=== PATIENT | female | born 1985 | race Caucasian/White ===

== ENCOUNTER 2016-09-28 14:32 | Emergency (ER) | payer MEDICAID ==
[2016-09-28 14:37] VITALS: RESP 16; O2SAT 97
--- NOTE | 2016-09-28 15:55 | EDPHY ---
H & P Time Seen by Provider: 09/28/16 14:59 HPI/ROS: CHIEF COMPLAINT: Fall, left knee and ankle injury HISTORY OF PRESENT ILLNESS: 30-year-old female presents to the emergency department by private vehicle after she fell down some bleachers at her son's baseball game just prior to arrival. Patient states that she slipped and fell injuring her left knee and her left ankle. She hit her head although she did not lose consciousness. She has a mild frontal headache. Denies neck or back pain. Denies chest pain or difficulty breathing. Denies abdominal pain. Denies paresthesias in her upper lower extremities. She has been unable to ambulate since the incident occurred just prior to arrival. She denies pain in her hip. REVIEW OF SYSTEMS: Constitutional: No fever, no chills. Eyes: No double or blurry vision. ENT: No sore throat. Respiratory: No cough, no shortness of breath. Cardiac: No chest pain. Gastrointestinal: No abdominal pain, vomiting or diarrhea. Genitourinary: No dysuria. Musculoskeletal: No neck or back pain. Skin: No rashes. Neurological: Mild headache. Past Medical/Surgical History: Kidney stones, anxiety, hysterectomy Social History: Single and lives in [place] Smoking Status: Former smoker Physical Exam: General Appearance: Alert, no distress. No signs of trauma to her head. She is mentating normally and answering questions appropriately. Eyes: Pupils equal and round. Extraocular motions are all intact. ENT: Mouth: Mucous membranes moist. No dental injury or malocclusion. Respiratory: No wheezing, rhonchi, or rales, lungs are clear to auscultation. Cardiovascular: Regular rate and rhythm. Gastrointestinal: Abdomen is soft and nontender, no masses, no rebound or guarding, bowel sounds normal. Neurological: Alert and oriented x 3, cranial nerves II through XII grossly intact Skin: Warm and dry, no rashes. Musculoskeletal: Nontender to palpate along the cervical, thoracic or lumbar spine. Neck is supple. Extremities: Diffuse tenderness with palpation to the left anterior aspect of her knee and lateral aspect of her left ankle. Difficult to assess ligament stability given her level of pain. No effusions noted. Limited dorsiflexion secondary to pain. Limited flexion of the left knee secondary to pain. No abrasions or ecchymosis. Normal sensation to light touch. Strong dorsalis pedis pulse on the dorsal aspect of the left foot. Psychiatric: Patient is oriented X 3, there is no agitation. Constitutional: Initial Vital Signs Temperature (C) 36.8 C 09/28/16 14:34 Heart Rate 114 H 09/28/16 14:34 Respiratory Rate 16 09/28/16 14:34 Blood Pressure 109/88 H 09/28/16 14:34 O2 Sat (%) 97 09/28/16 14:34 O2 Delivery Mode Room Air Allergies/Adverse Reactions: codeine Allergy (Verified 09/28/16 14:37) diphenhydramine [From Benadryl] Allergy (Verified 09/28/16 14:37) Medical Decision Making - Diagnostics Imaging Results: Imaging Impressions Ankle X-Ray 09/28/16 15:52 Impression: No acute osseous findings. Knee X-Ray 09/28/16 15:52 Impression: No acute osseous findings. ED Course/Re-evaluation: 30-year-old female presents to the emergency department after she fell injuring her left knee and ankle. X-rays reveal no fractures. The patient was placed in a straight leg knee immobilizer and stirrup splint for her left ankle and given crutches. She was also given orthopedic referral. [place] prescription drug monitoring program was consulted the patient has had 17 different providers prescribe narcotic medication over the last 1 year. Most recently she had a prescription for #84 oxycodone 5 mg filled on 2016. I explained to the patient that we will not fill narcotic medication for her. Differential Diagnosis: Including but not limited to fracture, dislocation, contusion, sprain - Data Points Medications Given: Discontinued Medications Ondansetron HCl (Zofran Odt) 4 mg PO EDNOW ONE Stop: 09/28/16 15:58 Last Admin: 09/28/16 16:11 Dose: 4 mg Departure - Departure Disposition: Home, Routine, Self-Care Clinical Impression: Left knee sprain Qualifiers: Encounter type: initial encounter Involved ligament of knee: unspecified ligament Qualified Code(s): S83.92XA - Sprain of unspecified site of left knee, initial encounter Left ankle sprain Qualifiers: Encounter type: initial encounter Involved ligament of ankle: unspecified ligament Qualified Code(s): S93.402A - Sprain of unspecified ligament of left ankle, initial encounter Condition: Good Instructions: Ankle Sprain (ED), Knee Sprain (ED) Additional Instructions: Knee immobilizer for comfort and support. Ankle stirrup splint for comfort and support. Weightbear as tolerated, use crutches if needed. Ibuprofen 600 mg every 8 hours as needed for pain. Referrals: Marcus Mejía MD [Medical Doctor] - 2-3 days without fail (orthopedic surgeon production hand) Stand Alone Forms: Narcotic Guidelines
[2016-09-28] MEDS ORDERED: ONDANSETRON DISINTEGRATING 4 MG TAB PO ONE (15:57)
[2016-09-28 17:17] VITALS: BP 127/108; PULSE 108; TEMP 97.9
== END 2016-09-28 17:17 | disposition home or self-care (01) ==
DX: S93.402A Sprain of unspecified ligament of left ankle, initial encounter (principal); S83.92XA Sprain of unspecified site of left knee, initial encounter; Z87.891 Personal history of nicotine dependence; W01.0XXA Fall on same level from slipping, tripping and stumbling without subsequent striking against object, initial encounter
CPT/HCPCS: L1830; L4350

== ENCOUNTER 2016-10-05 14:43 | Emergency (ER) | payer MEDICAID ==
[2016-10-05 14:53] VITALS: TEMP 98.6
[2016-10-05] MEDS ORDERED: NS 1,000 ML IV ONE ×3 (16:03→18:58)
[2016-10-05] MEDS ORDERED: HYDROmorphONE/DILAUDID 1 MG/ML SYR IVP ONE ×3 (16:03→19:49)
[2016-10-05] MEDS ORDERED: ONDANSETRON 4 MG/2 ML VIAL IVP ONE (16:03)
[2016-10-05] MEDS ORDERED: KETAMINE 100 MG/10 ML SYR IVP ONE ×3 (16:04→20:31)
--- NOTE | 2016-10-05 16:06 | EDPHY ---
H & P Time Seen by Provider: 10/05/16 15:54 HPI/ROS: CHIEF COMPLAINT: Worsening pelvic pain HISTORY OF PRESENT ILLNESS: Patient had hysterectomy in April of this year on the by Dr. Guillaume Phan at [facility]. Apparently she had mesh and some surgical infection postoperatively. Currently she is not a [facility] patient. Has not seen a physician in 2 months. Has been having worsening pelvic pain for the last 10 days much worse today was originally on the left side and now radiates across to the right. Today it is associated with nausea and vomiting and is severe in nature. Associated with urinary urgency and hesitancy but no dysuria or hematuria. She describes a few vaginal blood spots but nothing active right now. REVIEW OF SYSTEMS: Eye: no change in vision ENT: no sore throat Cardiac: no chest pain or syncope Pulmonary: no cough or SOB Abdomen: No diarrhea Musculoskeletal: no back pain; knee pain last week in ED, resolved Skin: no rash Neuro: no headache Constitutional: no fever : HPI A comprehensive 10 point review of systems is otherwise negative aside from elements mentioned in the history of present illness. PAST MEDICAL HISTORY: Hysterectomy, kidney stones, anxiety and depression. Cholecystectomy and appendectomy. Social history: Currently is seeing [facility], recently moved up here from [place]. General Appearance: Alert and conversant, cooperative. Eyes: No scleral icterus. ENT, Mouth: Normal mucous membranes. Respiratory: Normal respiratory effort, breath sounds equal, lungs are clear to auscultation. Cardiovascular: Regular rate and rhythm. Gastrointestinal: Some diffuse lower abdominal tenderness but no rebound or guarding. Bowel sounds present. Neurological: Alert and oriented x3. Normally conversant. Face symmetric, normal movement and sensation in all extremities. Skin: Warm and dry, no rashes. Musculoskeletal: No peripheral edema and no joint swelling. Psychiatric: Moderately anxious. Emergency Department course/MDM: Dilaudid 0.5 and Zofran 4 mg IV. Normal saline 1 L for nausea and vomiting. Ketamine for adjunctive pain control. I-STAT then CT abdomen and pelvis. test not indicated as she has had a hysterectomy. 1746: Negative abdominal pelvis CT scan per Dr. Martell. 1800: Results discussed, still has pain. Additional 20 mg ketamine IV, Bentyl 20 p.o., Dilaudid 0.5 IV. 1854: Still has pain, much more comfortable. Toradol 15mg. 1951: Still tells me she has abdominal pain with minimal abdominal tenderness and no rebound or guarding. Plan for pelvic exam, pelvic ultrasound, offered patient admission to hospitalist service. At this point her Emergency Department visit from 1 week ago was reviewed. According to the ED report she has had 17 different providers write controlled substance prescriptions over the past year including a prescription for 84 oxycodone on September 15. I informed the patient she would not get any further opioid medications but I was still willing to admit her for treatment of her symptoms if she feels she is too much in pain to be discharged. 2014: Pelvic performed with EMT Jennifer the in the room, has some left-sided vaginal tenderness but normal internal and external exam with the speculum of the vaginal cuff. No bleeding or discharge. 2024: The patient tells me because of childcare issues she wants to be discharged. She does not want to be overnight in the hospital. She is referred to public area attendant and her primary care clinic. She is encouraged to return if she changes her mind about admission or pelvic ultrasound. Wants an additional dose of pain medication, additional 20 mg IV ketamine and 15 mg IV Toradol ordered. MAINTENANCE ELECTRICIAN referral. Smoking Status: Former smoker Constitutional: Initial Vital Signs Temperature (C) 37.0 C 10/05/16 14:49 Heart Rate 121 H 10/05/16 14:49 Respiratory Rate 18 10/05/16 14:49 Blood Pressure 105/88 H 10/05/16 14:49 O2 Sat (%) 97 10/05/16 14:49 O2 Delivery Mode Room Air O2 (L/minute) 2 Allergies/Adverse Reactions: codeine Allergy (Verified 09/28/16 14:37) diphenhydramine [From Benadryl] Allergy (Verified 09/28/16 14:37) Home Medications: Medication Instructions Recorded ALPRAZolam 10/05/16 Cymbalta 10/05/16 Medical Decision Making Differential Diagnosis: Differential considered including but not limited to ovarian torsion, ovarian cyst, bowel obstruction, intestinal perforation, diverticulitis. Consult/Admit Bed Type: [facility] 1959 - Data Points Laboratory Results: Laboratory Results 10/05/16 16:10 10/05/16 16:10 Medications Given: Discontinued Medications Dicyclomine HCl (Bentyl) 20 mg PO EDNOW ONE Stop: 10/05/16 18:06 Last Admin: 10/05/16 18:40 Dose: 20 mg Hydromorphone HCl (Dilaudid) 0.5 mg IVP EDNOW ONE Stop: 10/05/16 16:04 Last Admin: 10/05/16 16:19 Dose: 0.5 mg Hydromorphone HCl (Dilaudid) 0.5 mg IVP EDNOW ONE Stop: 10/05/16 18:07 Last Admin: 10/05/16 18:20 Dose: 0.5 mg Hydromorphone HCl (Dilaudid) 0.5 mg IVP EDNOW ONE Stop: 10/05/16 19:50 Last Admin: 10/05/16 20:42 Dose: Not Given Sodium Chloride (Ns) 1,000 mls @ 0 mls/hr IV EDNOW ONE; Wide Open PRN Reason: Protocol Stop: 10/05/16 16:04 Last Admin: 10/05/16 16:20 Dose: 1,000 mls Sodium Chloride (Ns) 1,000 mls @ 0 mls/hr IV EDNOW ONE; Wide Open PRN Reason: Protocol Stop: 10/05/16 16:04 Last Admin: 10/05/16 16:20 Dose: 1,000 mls Sodium Chloride (Ns) 1,000 mls @ 0 mls/hr IV EDNOW ONE; Wide Open PRN Reason: Protocol Stop: 10/05/16 18:59 Last Admin: 10/05/16 19:13 Dose: 1,000 mls Ketamine HCl (Ketamine) 20 mg IVP EDNOW ONE Stop: 10/05/16 16:05 Last Admin: 10/05/16 16:19 Dose: 20 mg Ketamine HCl (Ketamine) 20 mg IVP EDNOW ONE Stop: 10/05/16 18:06 Last Admin: 10/05/16 18:20 Dose: 20 mg Ketamine HCl (Ketamine) 20 mg IVP EDNOW ONE Stop: 10/05/16 20:32 Last Admin: 10/05/16 20:51 Dose: 20 mg Ketorolac Tromethamine (Toradol) 15 mg IVP EDNOW ONE Stop: 10/05/16 18:59 Last Admin: 10/05/16 19:14 Dose: 15 mg Ketorolac Tromethamine (Toradol) 15 mg IVP EDNOW ONE Stop: 10/05/16 20:32 Last Admin: 10/05/16 20:51 Dose: 15 mg Ondansetron HCl (Zofran) 4 mg IVP EDNOW ONE Stop: 10/05/16 16:04 Last Admin: 10/05/16 16:19 Dose: 4 mg Departure - Departure Disposition: Home, Routine, Self-Care Clinical Impression: Pelvic pain Condition: Good Instructions: Pelvic Pain in Women (ED) Referrals: [facility] [Outside] Natty Vieira DO [Doctor of Osteopathy] -
[2016-10-05 16:27] LABS: % IMMATURE GRANULYOCYTES 0.8 % (0.0-1.1); ABSOLUTE IMMATURE GRANULOCYTES 0.09 10^3/uL (0.00-0.10); ADD DIFF? NO; ADD MORPH? NO; ADD SCAN? NO; ATYPICAL LYMPHOCYTE FLAG 10 (0-99); FRAGMENT RBC FLAG 0 (0-99); HEMATOCRIT 39.9 % (38.0-47.0); HEMOGLOBIN 13.5 g/dL (12.6-16.3); LEFT SHIFT FLG 10 (0-99); LIPEMIA HEMOLYSIS FLAG 90 (0-99); MEAN CELL HEMOGLOBIN 31.3 pg (27.9-34.1); MEAN CELL HEMOGLOBIN CONCENTR. 33.8 g/dL (32.4-36.7); MEAN CELL VOLUME 92.4 fL (81.5-99.8); MEAN PLATELET VOLUME 8.9 fL (8.7-11.7); PLATELET CLUMPS FLAG 0 (0-99); PLATELET COUNT 418 10^3/uL (150-400); RED BLOOD CELL COUNT 4.32 10^6/uL (4.18-5.33)
[2016-10-05] MEDS ORDERED: IOPAMIDOL (ISOVUE-300) 100 ML BTL ONE (16:32)
[2016-10-05 16:38] LABS: ANION GAP 11 mEq/L (8-16); CALCIUM 9.8 mg/dL (8.5-10.4); CARBON DIOXIDE 23 mEq/l (22-31); CHLORIDE 105 mEq/L (97-110); CREATININE 0.6 mg/dL (0.6-1.0); GLOMERULAR FILTRATION RATE > 60; GLUCOSE 87 mg/dL (70-100); POTASSIUM 4.1 mEq/L (3.5-5.2); SODIUM 139 mEq/L (134-144)
[2016-10-05 17:25] LABS: COLOR PALE YELLOW; LEUKOCYTE ESTERASE,URINE NEGATIVE (NEGATIVE); NITRITE,URINE NEGATIVE (NEGATIVE)
[2016-10-05 17:33] LABS: MUCUS TRACE /lpf (NONE-1+)
[2016-10-05] MEDS ORDERED: DICYCLOMINE 20 MG TAB PO ONE (18:05)
[2016-10-05] MEDS ORDERED: KETOROLAC 30 MG/1 ML SDV IVP ONE (18:58)
[2016-10-05] MEDS ORDERED: KETOROLAC 15 MG/1 ML SDV IVP ONE (20:31)
[2016-10-05 21:36] VITALS: BP 117/72; PULSE 88; RESP 16; O2SAT 96
== END 2016-10-05 21:35 | disposition home or self-care (01) ==
LOC: UNDOADMOB 19:58
DX: R10.2 Pelvic and perineal pain (principal); E86.9 Volume depletion, unspecified; Z87.891 Personal history of nicotine dependence
CPT/HCPCS: 82947-QW; 96374; J1170; J1885; J2405; Q9967

== ENCOUNTER 2016-10-07 20:20 | Inpatient (IN) | payer MEDICAID ==
--- NOTE | 2016-10-07 21:10 | EDPHY ---
HPI/HX/ROS/PE/MDM Narrative: CHIEF COMPLAINT: Pelvic pain HISTORY OF PRESENT ILLNESS: The patient is a 30-year-old female presenting with pelvic pain that has been ongoing since Apr, but worse for the past week. The patient had a hysterectomy in April with postoperative complications and infection. Since the surgery she reports intermittent pelvic pain. Over the past week this pain has worsened in severity. She has associated nausea and vomiting as well as some diarrhea. The patient was seen here two day ago and had a pelvic exam, CT showed left adnexal cyst. She received IV pain medication and was discharged home. Since discharged patient has continued to have nausea and vomiting and loose stools. She states her pelvic pain has remained constant. She reports a pelvic pressure similar to child . She additionally notes heavier vaginal discharge, cream colored. She has not been able to sleep due to severity of pain. This morning she reports fever of 101.8. No new sexual partners. Last intercourse was in April. REVIEW OF SYSTEMS: Aside from elements discussed in the HPI, a comprehensive 10-point review of systems was reviewed and is negative. PAST MEDICAL HISTORY: History of kidney stones, status post hysterectomy. SOCIAL HISTORY: Former smoker. Has three children. VITAL SIGNS: Reviewed by me GENERAL: Well-developed, well-nourished, laying on her side, reports significant nausea. HEENT: Atraumatic. Eyes: No icterus, no injection. Mouth: Slightly dry mucous membranes. No erythema or lesions. Neck: supple with no adenopathy. LUNGS: Clear to auscultation bilaterally, no wheezes, rhonchi or rales. CARDIAC: Regular rate and rhythm, no rubs, murmurs or gallops. ABDOMEN: Soft, LLQ and suprapubic tenderness, no guarding or rebound. nondistended, bowel sounds normal. BACK: Mild right CVA tenderness. EXTREMITIES: No trauma. No edema. Range of motion is normal throughout. NEURO: Alert and oriented, grossly nonfocal. SKIN: Warm and dry, no rash. PSYCHIATRIC: Normal mentation, no agitation. ED Course: Patient diagnosed with left adnexal cyst on CT two days ago returns today with continued pelvic pain and vomiting. On exam patient has left sided abdominal tenderness. Vitals are normal. Patient is afebrile. Plan for pelvic US. I will check lab work and UA. Patient has an elevated WBC. US shows left adnexal cyst without evidence of rupture, torsion, or hemorrhage Patient received IV Dilaudid, Zofran, and fluids. 11:00 p.m.: I discussed findings with the patient. On reevaluation, she continues to have a moderate amount of pain. I ordered additional Dilaudid and Zofran. 11:30 p.m.. Patient reports ongoing discomfort. She understands our concerns regarding her past history of significant numbers of prescriptions for opiate medications from a significant number of providers. We discussed discharged home with ongoing symptomatic care including nonsteroidals and antiemetics. Patient is concerned given the severity of her discomfort previously as well as the severity of her vomiting. Patient's course discussed with Dr. Mercado; patient will be admitted to the hospitalist service for ongoing symptomatic care. Stool cultures for C difficile were ordered. MDM: The differential diagnosis for the patient's abdominal pain was considered including but not limited to ovarian cyst, pelvic inflammatory disease, ovarian torsion, urinary tract infection, related complications, and appendicitis. - Data Points Imaging Results: Pelvic ultrasound: Impression: 1. Previous hysterectomy. 2. Follicular cyst left adnexa with adjacent follicles. 3. Normal-appearing right ovary with small follicles. Findings discussed with Supriya Juarez MD at 22:44 hour, 10/07/2016. Imaging: Discussed imaging studies w/ scallop binder Radiologist Laboratory Results: Laboratory Results 10/07/16 20:50 10/07/16 20:50 Medications Given: Discontinued Medications Hydromorphone HCl (Dilaudid) 1 mg IVP EDNOW ONE Stop: 10/07/16 21:18 Last Admin: 10/07/16 21:52 Dose: 1 mg Hydromorphone HCl (Dilaudid) 1 mg IVP EDNOW ONE Stop: 10/07/16 22:58 Last Admin: 10/07/16 23:32 Dose: 1 mg Hydromorphone HCl (Dilaudid) 0.8 mg IVP ONCE ONE Stop: 10/08/16 02:13 Last Admin: 10/08/16 02:26 Dose: 0.8 mg Hydromorphone HCl (Dilaudid) 0.4 mg IVP Q4HRS PRN PRN Reason: Pain, Severe Unable to Take PO Stop: 10/18/16 05:02 Last Admin: 10/08/16 17:12 Dose: 0.4 mg Hydromorphone HCl (Dilaudid) 0.5 mg IVP ONCE ONE Stop: 10/08/16 11:34 Last Admin: 10/08/16 12:27 Dose: 0.5 mg Sodium Chloride (Ns) 1,000 mls @ 0 mls/hr IV EDNOW ONE; Wide Open PRN Reason: Protocol Stop: 10/07/16 21:18 Last Admin: 10/07/16 21:51 Dose: 1,000 mls Ketorolac Tromethamine (Toradol) 30 mg IVP Q6HRS PRN PRN Reason: Pain, Inflammatory Stop: 10/13/16 01:33 Last Admin: 10/08/16 08:27 Dose: 30 mg Ondansetron HCl (Zofran) 4 mg IVP EDNOW ONE Stop: 10/07/16 21:37 Last Admin: 10/07/16 21:52 Dose: 4 mg Ondansetron HCl (Zofran) 4 mg IVP EDNOW ONE Stop: 10/07/16 22:58 Last Admin: 10/07/16 23:32 Dose: 4 mg Oxycodone HCl (Oxycodone Ir) 10 mg PO ONCE ONE Stop: 10/08/16 19:50 Last Admin: 10/08/16 20:04 Dose: 10 mg General Time Seen by Provider: 10/07/16 20:46 Initial Vital Signs: Initial Vital Signs Temperature (C) 36.9 C 10/07/16 20:23 Heart Rate 97 10/07/16 20:23 Respiratory Rate 16 10/07/16 20:23 Blood Pressure 133/96 H 10/07/16 20:23 O2 Sat (%) 98 10/07/16 20:23 O2 Delivery Mode Room Air Allergies/Adverse Reactions: morphine Allergy (Unknown, Unverified 10/08/16 09:33) Hives codeine Allergy (Verified 10/07/16 20:23) diphenhydramine [From Benadryl] Allergy (Verified 10/07/16 20:23) Home Medications: Medication Instructions Recorded ALPRAZolam [Xanax 1 MG (*)] 1 mg PO BID 10/05/16 DULoxetine [Cymbalta 60 MG (*)] 60 mg PO DAILY10 10/05/16 Mometasone/Formoterol [Dulera 100 2 puffs IH BID 10/08/16 Mcg/5 Mcg Inhaler] oxyCODONE IR [Oxycodone Ir (*)] 5 mg PO TID 10/08/16 Departure - Departure Disposition: [facility] Clinical Impression: Adnexal cyst, Pelvic pain Diarrhea Qualifiers: Diarrhea type: unspecified type Qualified Code(s): R19.7 - Diarrhea, unspecified Condition: Good Report Scribed for: Supriya Juarez Report Scribed by: Dahiana Tavares Date of Report: 10/07/16 Time of Report: 21:21 Physician Review and Approval Statement: Portions of this note were transcribed by a lpn medical assistant. I personally performed a history, physical exam, medical decision making, and confirmed accuracy of information the transcribed note.
[2016-10-07] MEDS ORDERED: NS 1,000 ML IV ONE (21:17)
[2016-10-07] MEDS ORDERED: HYDROmorphONE/DILAUDID 1 MG/ML SYR IVP ONE ×2 (21:17→22:57)
[2016-10-07 21:24] LABS: % IMMATURE GRANULYOCYTES 0.7 % (0.0-1.1); ABSOLUTE IMMATURE GRANULOCYTES 0.09 10^3/uL (0.00-0.10); ADD DIFF? NO; ADD MORPH? NO; ADD SCAN? NO; ATYPICAL LYMPHOCYTE FLAG 10 (0-99); FRAGMENT RBC FLAG 0 (0-99); HEMATOCRIT 38.1 % (38.0-47.0); LEFT SHIFT FLG 0 (0-99); LIPEMIA HEMOLYSIS FLAG 90 (0-99); MEAN CELL HEMOGLOBIN 31.3 pg (27.9-34.1); MEAN CELL HEMOGLOBIN CONCENTR. 34.1 g/dL (32.4-36.7); MEAN CELL VOLUME 91.6 fL (81.5-99.8); MEAN PLATELET VOLUME 8.9 fL (8.7-11.7); PLATELET CLUMPS FLAG 20 (0-99); PLATELET COUNT 479 10^3/uL (150-400); RED BLOOD CELL COUNT 4.16 10^6/uL (4.18-5.33); RED CELL DISTRIBUTION WIDTH 14.4 % (11.5-15.2)
[2016-10-07 21:28] LABS: ANION GAP 13 mEq/L (8-16); CALCIUM 10.1 mg/dL (8.5-10.4); CARBON DIOXIDE 22 mEq/l (22-31); CHLORIDE 106 mEq/L (97-110); CREATININE 0.6 mg/dL (0.6-1.0); GLOMERULAR FILTRATION RATE > 60; GLUCOSE 100 mg/dL (70-100); SODIUM 141 mEq/L (134-144)
[2016-10-07] MEDS ORDERED: ONDANSETRON 4 MG/2 ML VIAL IVP ONE ×2 (21:36→22:57)
[2016-10-07 22:03] LABS: COLOR YELLOW; LEUKOCYTE ESTERASE,URINE NEGATIVE (NEGATIVE); NITRITE,URINE NEGATIVE (NEGATIVE)
[2016-10-07 22:08] LABS: MUCUS TRACE /lpf (NONE-1+)
[2016-10-08] MEDS ORDERED: PROMETHAZINE HCL 25 MG/ML INJ IVP PRN (01:26)
[2016-10-08] MEDS ORDERED: ONDANSETRON DISINTEGRATING 4 MG TAB PO PRN (01:26)
[2016-10-08] MEDS ORDERED: NS 1,000 ML IV SCH (01:30)
[2016-10-08] MEDS: KETOROLAC 30 MG/1 ML SDV IVP PRN ×2 (01:55→08:27)
[2016-10-08] MEDS ORDERED: HYDROmorphONE/DILAUDID 1 MG/ML SYR IVP ONE ×2 (02:12→11:33)
[2016-10-08 04:28] LABS: % IMMATURE GRANULYOCYTES 0.6 % (0.0-1.1); ABSOLUTE IMMATURE GRANULOCYTES 0.07 10^3/uL (0.00-0.10); ADD DIFF? NO; ADD MORPH? NO; ADD SCAN? NO; ATYPICAL LYMPHOCYTE FLAG 20 (0-99); FRAGMENT RBC FLAG 0 (0-99); HEMATOCRIT 34.6 % (38.0-47.0); HEMOGLOBIN 11.3 g/dL (12.6-16.3); LEFT SHIFT FLG 0 (0-99); LIPEMIA HEMOLYSIS FLAG 80 (0-99); MEAN CELL HEMOGLOBIN 31.1 pg (27.9-34.1); MEAN CELL HEMOGLOBIN CONCENTR. 32.7 g/dL (32.4-36.7); MEAN CELL VOLUME 95.3 fL (81.5-99.8); MEAN PLATELET VOLUME 8.7 fL (8.7-11.7); PLATELET CLUMPS FLAG 10 (0-99); PLATELET COUNT 364 10^3/uL (150-400); RED BLOOD CELL COUNT 3.63 10^6/uL (4.18-5.33); RED CELL DISTRIBUTION WIDTH 14.5 % (11.5-15.2)
[2016-10-08 04:49] LABS: ANION GAP 10 mEq/L (8-16); CALCIUM 8.7 mg/dL (8.5-10.4); CARBON DIOXIDE 22 mEq/l (22-31); CHLORIDE 110 mEq/L (97-110); CREATININE 0.7 mg/dL (0.6-1.0); GLOMERULAR FILTRATION RATE > 60; GLUCOSE 97 mg/dL (70-100); POTASSIUM 4.1 mEq/L (3.5-5.2); SODIUM 142 mEq/L (134-144)
--- NOTE | 2016-10-08 05:12 | PDGENHP ---
History and Physical - Chief Complaint Pelvic pain - History of Present Illness Ms. Emily Husain is a 30 yo F w/ hx of fibromyalgia, chronic pelvic pain, and depression presenting with acute on chronic pelvic pain. She describes at least several months of chronic pelvic pain. She had a hysterectomy with mesh placement in April of this year that only worsened her symptoms. Post-op period was complicated by several infections, per patient. She usually has some degree of pelvic pain but this worsened significantly over the last 2 weeks. Additionally, over the last week she developed nausea, vomiting, and diarrhea (~ 6 BMs daily). She denies chest pain, SOB, cough, fever, chills, and dysuria. History Information - Allergies/Home Medication List Allergies/Adverse Reactions: codeine Allergy (Verified 10/07/16 20:23) diphenhydramine [From Benadryl] Allergy (Verified 10/07/16 20:23) Home Medications: ALPRAZolam 10/05/16 [Last Taken Unknown] Cymbalta 10/05/16 [Last Taken Unknown] I have personally reviewed and updated: medical history - Past Medical History fibromyalgia, psychiatric history Additional medical history: Chronic pelvic pain - Surgical History Reports: appendectomy, cholecystectomy, hysterectomy - Family History Additional family history: Fibromyalgia, depression - Social History Smoking Status: Former smoker Drug Use: None Review of Systems ROS: 10pt was reviewed & negative except for what was stated in HPI & below Physical Exam Temp Pulse Resp BP Pulse Ox 36.9 C 74 16 105/65 95 10/08/16 04:16 10/08/16 04:16 10/08/16 04:16 10/08/16 04:16 10/08/16 04:16 Constitutional: obese, uncomfortable Eyes: PERRL, EOMI Ears, Nose, Mouth, Throat: moist mucous membranes, no oral mucosal ulcers Cardiovascular: regular rate and rhythym, no murmur, rub, or gallop Respiratory: no respiratory distress, clear to auscultation Gastrointestinal: normoactive bowel sounds, tenderness (LLQ), No rebound Skin: warm, no rashes or abrasions Neurologic: AAOx3, CN II-XII Intact Psychiatric: interacting appropriately, not anxious Lab Data & Imaging Review 10/08/16 04:14 10/08/16 04:14 WBC 11.38 10^3/uL (3.80-9.50) H 10/08/16 04:14 RBC 3.63 10^6/uL (4.18-5.33) L 10/08/16 04:14 Hgb 11.3 g/dL (12.6-16.3) L 10/08/16 04:14 Hct 34.6 % (38.0-47.0) L 10/08/16 04:14 MCV 95.3 fL (81.5-99.8) 10/08/16 04:14 MCH 31.1 pg (27.9-34.1) 10/08/16 04:14 MCHC 32.7 g/dL (32.4-36.7) 10/08/16 04:14 RDW 14.5 % (11.5-15.2) 10/08/16 04:14 Plt Count 364 10^3/uL (150-400) D 10/08/16 04:14 MPV 8.7 fL (8.7-11.7) 10/08/16 04:14 Neut % (Auto) 50.9 % (39.3-74.2) 10/08/16 04:14 Lymph % (Auto) 39.4 % (15.0-45.0) 10/08/16 04:14 Falls % (Auto) 6.9 % (4.5-13.0) 10/08/16 04:14 Eos % (Auto) 1.8 % (0.6-7.6) 10/08/16 04:14 Baso % (Auto) 0.4 % (0.3-1.7) 10/08/16 04:14 Nucleat RBC Rel Count 0.0 % (0.0-0.2) 10/08/16 04:14 Absolute Neuts (auto) 5.81 10^3/uL (1.70-6.50) 10/08/16 04:14 Absolute Lymphs (auto) 4.48 10^3/uL (1.00-3.00) H 10/08/16 04:14 Absolute Monos (auto) 0.78 10^3/uL (0.30-0.80) 10/08/16 04:14 Absolute Eos (auto) 0.20 10^3/uL (0.03-0.40) 10/08/16 04:14 Absolute Basos (auto) 0.04 10^3/uL (0.02-0.10) 10/08/16 04:14 Absolute Nucleated RBC 0.00 10^3/uL (0-0.01) 10/08/16 04:14 Immature Gran % 0.6 % (0.0-1.1) 10/08/16 04:14 Immature Gran # 0.07 10^3/uL (0.00-0.10) 10/08/16 04:14 Sodium 142 mEq/L (134-144) 10/08/16 04:14 Potassium 4.1 mEq/L (3.5-5.2) 10/08/16 04:14 Chloride 110 mEq/L (97-110) 10/08/16 04:14 Carbon Dioxide 22 mEq/l (22-31) 10/08/16 04:14 Anion Gap 10 mEq/L (8-16) 10/08/16 04:14 BUN 7 mg/dL (7-23) 10/08/16 04:14 Creatinine 0.7 mg/dL (0.6-1.0) 10/08/16 04:14 Estimated GFR > 60 10/08/16 04:14 Glucose 97 mg/dL (70-100) 10/08/16 04:14 Calcium 8.7 mg/dL (8.5-10.4) 10/08/16 04:14 Lipase 75.0 IU/L (23-300) 10/07/16 20:50 Urine Color YELLOW 10/07/16 21:50 Urine Appearance HAZY 10/07/16 21:50 Urine pH 7.0 (5.0-7.5) 10/07/16 21:50 Ur Specific [place] 1.014 (1.002-1.030) 10/07/16 21:50 Urine Protein NEGATIVE (NEGATIVE) 10/07/16 21:50 Urine Ketones NEGATIVE (NEGATIVE) 10/07/16 21:50 Urine Blood 1+ (NEGATIVE) H 10/07/16 21:50 Urine Nitrate NEGATIVE (NEGATIVE) 10/07/16 21:50 Urine Bilirubin NEGATIVE (NEGATIVE) 10/07/16 21:50 Urine Urobilinogen NEGATIVE EU (0.2-1.0) 10/07/16 21:50 Ur Leukocyte Esterase NEGATIVE (NEGATIVE) 10/07/16 21:50 Urine RBC 1-3 /hpf (0-3) 10/07/16 21:50 Urine WBC 1-3 /hpf (0-3) 10/07/16 21:50 Ur Epithelial Cells 2+ /lpf (NONE-1+) H 10/07/16 21:50 Urine Mucus TRACE /lpf (NONE-1+) 10/07/16 21:50 Urine Glucose NEGATIVE (NEGATIVE) 10/07/16 21:50 Imaging Review: CT A/P from recent ED visit reviewed: no acute abdominal pathology. Incidentally noted, non-obstructing R renal calculus and small L ovarian cyst Pelvic U/S 10/07/16: Small L ovarian cyst re-demonstrated Assessment & Plan Assessment: Adnexal cyst (Acute) Plan: Ms. Emily Husain is a 30 yo F w/ hx of fibromyalgia, chronic pelvic pain, and depression presenting with acute on chronic pelvic pain without clear etiology. 1. Acute on chronic pelvic pain - No clear etiology, CT A/P and pelvic U/S without acute pathology, UA non-infectious; doubt small cyst is contributing. Diarrhea and vomiting make gastroenteritis worsening chronic pelvic pain a possibility; has had several courses of antibiotics in the last few months. Will check GI PCR and treat supportively with IVF, anti-emetics, and pain medication(will limit opiates as much as able, although patient very resistant) . Suspect a significant part of her complaints stem from opiate dependence and drug seeking behavior. Per ED, she has had 17 opiate providers in the last year. Would not prescribe opiates on discharge. 2. Fibromyalgia - On Cymbalta as outpatient, likely significantly contributing to above Diet - Regular Ppx - LMWH Code - Full Dispo - Admit to OBS for pain control
[2016-10-08] MEDS: HYDROmorphONE/DILAUDID 1 MG/ML SYR IVP PRN ×4 (05:21→21:24)
[2016-10-08] MEDS: ONDANSETRON 4 MG/2 ML VIAL IVP PRN ×3 (05:22→21:25)
[2016-10-08] MEDS: ENOXAPARIN 40 MG/0.4 ML SYR SC SCH (08:28)
--- NOTE | 2016-10-08 11:52 | HOSPPROG ---
Hospitalist Progress Note Assessment/Plan: 30-year-old female with chronic pelvic pain who had hysterectomy with mesh placement done in April has had worsening pain and dysuria since then * acute on chronic pelvic pain * CT and ultrasound look okay. She does have a mild leukocytosis. Explain that escalating narcotics would not be done here. * Continue Toradol which he will schedule, small doses of Dilaudid, add back home oxycodone * She has an appointment with Urogynecology next week * asthma Subjective: Complaining of continued pelvic pain. With like Dilaudid frequency increased Objective: Vital Signs Temp Pulse Resp BP Pulse Ox 36.9 C 81 18 107/66 94 10/08/16 08:26 10/08/16 08:26 10/08/16 08:26 10/08/16 08:26 10/08/16 08:26 Laboratory Results 10/08/16 04:14 10/08/16 04:14 10/07/16 10/08/16 10/09/16 05:59 05:59 05:59 Intake Total 1180 984 Output Total 0 Balance 1180 984 - Physical Exam Constitutional: no apparent distress, appears nourished, not in pain Eyes: anicteric sclera, EOMI Ears, Nose, Mouth, Throat: moist mucous membranes Respiratory: no respiratory distress Gastrointestinal: normoactive bowel sounds, no palpable masses, tenderness ( Mild lower quadrant tenderness), No guarding, No rebound Neurologic: AAOx3 Psychiatric: anxious ICD10 Worksheet Patient Problems: Problems Problem Status Onset Adnexal cyst Acute
[2016-10-08] MEDS: Mometasone/Formoterol [Dulera 100 Mcg/5 Mcg Inhaler] 2 PUFFS IH SCH ×2 (12:03→21:28)
[2016-10-08] MEDS: KETOROLAC 30 MG/1 ML SDV IVP SCH ×3 (12:28→23:36)
[2016-10-08] MEDS: ALPRAZolam 1 MG TAB PO SCH ×2 (12:29→21:25)
[2016-10-08] MEDS: DULoxetine 60 MG CAP PO SCH (12:29)
[2016-10-08] MEDS: oxyCODONE IR 5 MG TAB PO SCH ×2 (16:16→21:26)
[2016-10-08] MEDS ORDERED: oxyCODONE IR 5 MG TAB PO ONE (19:49)
[2016-10-09] MEDS: HYDROmorphONE/DILAUDID 1 MG/ML SYR IVP PRN ×6 (01:12→21:48)
[2016-10-09] MEDS: ONDANSETRON 4 MG/2 ML VIAL IVP PRN ×2 (01:12→08:48)
[2016-10-09] MEDS: ACETAMINOPHEN 325 MG TAB PO PRN (04:11)
[2016-10-09] MEDS: KETOROLAC 30 MG/1 ML SDV IVP SCH (05:41)
[2016-10-09] MEDS: oxyCODONE IR 5 MG TAB PO SCH ×3 (08:48→21:01)
[2016-10-09] MEDS: ALPRAZolam 1 MG TAB PO SCH ×2 (08:48→19:47)
[2016-10-09] MEDS: ENOXAPARIN 40 MG/0.4 ML SYR SC SCH (08:48)
[2016-10-09] MEDS: DULoxetine 60 MG CAP PO SCH (08:48)
[2016-10-09] MEDS: Mometasone/Formoterol [Dulera 100 Mcg/5 Mcg Inhaler] 2 PUFFS IH SCH ×2 (09:47→20:29)
[2016-10-09] MEDS: PROMETHAZINE HCL 25 MG/ML INJ IVP SCH ×2 (11:51→17:32)
[2016-10-09] MEDS: NS 1,000 ML IV SCH ×2 (11:51→21:01)
[2016-10-09] MEDS: ONDANSETRON 4 MG/2 ML VIAL IVP SCH ×3 (14:46→21:48)
[2016-10-09] MEDS: OXYBUTYNIN CHLORIDE 5 MG TAB PO SCH ×2 (15:52→21:01)
--- NOTE | 2016-10-09 17:26 | HOSPPROG ---
Hospitalist Progress Note Assessment/Plan: DIAGNOSES: -acute on chronic pelvic pain -symptoms suggestive of bladder spasm or possibly interstitial cystitis -inappropriate drug-seeking behaviors The patient continues to complain of significant nausea and emesis though we still have not seen any evidence of emesis here despite requesting that she keep for us to see. She is complaining today of feeling like she has to urinate but cannot empty her bladder and the finds this quite uncomfortable and painful. We have done bladder scans 1 with no visible urine and 1 with less than 200 cc. There is no evidence of any particular intestinal pathogen, but could not rule out some type of viral pathogen at this point. PLANS: -I have increased her antiemetics and IV hydration and pacer antiemetics on a scheduled basis -I have decreased the frequency of her available narcotics and will keep working with her on attempt to transition to oral narcotics tonight and tomorrow I do not feel that further increases in pain medicine are all appropriate for her at this time. As stated on previous notes I also would not find it appropriate to give her the narcotic at discharge. -I have added treatment for possible bladder spasm, and at some point she will need to get into a urology clinic to check for possible interstitial cystitis Will make further temp tomorrow to try and clarify who is her ongoing primary care physician or who is actually a physician that she will have to oversee her pain management in the outpatient setting. SUBJECTIVE: Continues to complain of abdominal and pelvic pain, continues to complain of nausea and emesis that we still have not seen evidence of any emesis. Complains of sensation of inability to void bladder which she finds painful OBJECTIVE Vitals reviewed: Stable without fever Exam: alert oriented skin warm dry color ok resps not labored lungs clear BSs heart regular abd soft nondistended subjectively tender with no guarding or rebound and no palpable abnormality, bowel sounds present limbs warm, no edema iv site ok Laboratory data: Intestinal pathogen panel is negative White blood cell count is lower but remains mildly elevated at 11,000 thousand Objective: Vital Signs Temp Pulse Resp BP Pulse Ox 36.8 C 79 20 110/74 97 10/09/16 15:44 10/09/16 15:44 10/09/16 15:44 10/09/16 15:44 10/09/16 15:44 Microbiology 10/08/16 16:00 Gastrointestinal Tract Panel (PCR) - Final Stool No Organism Detected Laboratory Results 10/08/16 04:14 10/08/16 04:14 10/08/16 10/09/16 10/10/16 06:59 06:59 06:59 Intake Total 1993 1370 Output Total 150 Balance 1993 1220 ICD10 Worksheet Patient Problems: Problems Problem Status Onset Adnexal cyst Acute Diarrhea Acute Pelvic pain Acute
[2016-10-10] MEDS: PROMETHAZINE HCL 25 MG/ML INJ IVP SCH ×4 (00:40→18:10)
[2016-10-10] MEDS: NS 1,000 ML IV SCH ×2 (02:13→20:27)
[2016-10-10] MEDS: HYDROmorphONE/DILAUDID 1 MG/ML SYR IVP PRN ×3 (02:53→11:31)
[2016-10-10] MEDS: ONDANSETRON 4 MG/2 ML VIAL IVP SCH ×6 (02:58→20:28)
[2016-10-10] MEDS: Mometasone/Formoterol [Dulera 100 Mcg/5 Mcg Inhaler] 2 PUFFS IH SCH ×2 (08:22→20:33)
[2016-10-10] MEDS: OXYBUTYNIN CHLORIDE 5 MG TAB PO SCH ×3 (09:03→20:28)
[2016-10-10] MEDS: ALPRAZolam 1 MG TAB PO SCH ×2 (09:03→20:27)
[2016-10-10] MEDS: DULoxetine 60 MG CAP PO SCH (09:03)
[2016-10-10] MEDS: oxyCODONE IR 5 MG TAB PO SCH (09:03)
[2016-10-10] MEDS: HYDROmorphONE/DILAUDID 2 MG TAB PO PRN ×2 (16:25→20:27)
--- NOTE | 2016-10-10 17:37 | HOSPPROG ---
Hospitalist Progress Note Assessment/Plan: DIAGNOSES: -acute on chronic pelvic pain -symptoms suggestive of bladder spasm or possibly interstitial cystitis -inappropriate drug-seeking behaviors Today she continues to complain of pain and says it is very severe, again the pain unchanged from yesterday or her chronic in terms of location and the nature of the pain. Again a lot of the pain sounds like it is bladder or urethral related so question of possible interstitial cystitis or bladder spasm arises. We did start some medicine for bladder spasm yesterday and she thinks that may be helping somewhat. However her main concern and repeated request is that she get more narcotic and get extra doses. In lengthy discussion I explained to her in great detail that this will not help her either in the short run or the long run and will only lead to worsening narcotic dependency without improving her pain symptoms and is not a good clinical idea and that we will not prescribe that for her here. In fact now that she is eating her narcotic will be changed to oral, and will move towards trying to decrease her narcotic as we add other medicines to try and better help her pain for the long run. She was quite resistant to this initially and had to be fairly firm as she repeatedly made requests for more narcotic during our discussion. PLANS: -Continue antiemetics and IV hydration -narcotics were changed to oral at this time and will not be changed back to IV and will not be increased in dose in fact will be working towards decreasing the dosing. -I have added ditropan for possible bladder spasm, and Pyridium for bladder and urethral irritation -at some point she will need to get into an outpatient urology clinic to check for possible interstitial cystitis or bladder dysfunction; she reports that she has been referred to Urogynecology office and is waiting to hear from that office to make an appointment - anticipate possible discharge tomorrow -At that time will review with her that she needs to have 1 provider who provides narcotic for her if she is going to use any and that she needs to avoid going to multiple facilities and clinics and getting narcotics from multiple providers which has been her pattern SUBJECTIVE: Continues to complain of abdominal and pelvic pain, continues to complain of nausea and emesis that we still have not seen evidence of any emesis. Complains of sensation of inability to void bladder which she finds painful OBJECTIVE Vitals reviewed: Stable without fever Exam: alert oriented skin warm dry color ok resps not labored lungs clear BSs heart regular abd soft nondistended subjectively tender with no guarding or rebound and no palpable abnormality, bowel sounds present limbs warm, no edema iv site ok Laboratory data: Intestinal pathogen panel is negative White blood cell count is lower but remains mildly elevated at 11,000 thousand Objective: Vital Signs Temp Pulse Resp BP Pulse Ox 37.3 C 93 18 119/67 94 10/10/16 16:00 10/10/16 16:00 10/10/16 16:00 10/10/16 16:00 10/10/16 16:00 10/09/16 10/10/16 10/11/16 06:59 06:59 06:59 Intake Total 2800 Output Total 500 1000 Balance 2300 -1000 - Time Spent With Patient Time Spent with Patient: greater than 35 minutes Time Spent with Patient: Greater than 35 minutes spent on this patients care, greater than 50% of time spent counseling, educating, and coordinating care regarding the above mentioned plan. ICD10 Worksheet Patient Problems: Problems Problem Status Onset Adnexal cyst Acute Diarrhea Acute Pelvic pain Acute
[2016-10-10] MEDS: PHENAZOPYRIDINE HCL 200 MG TAB PO SCH (18:13)
[2016-10-11] MEDS: ACETAMINOPHEN 325 MG TAB PO PRN ×3 (00:20→08:44)
[2016-10-11] MEDS: PROMETHAZINE HCL 25 MG/ML INJ IVP SCH ×2 (00:21→06:21)
[2016-10-11] MEDS: HYDROmorphONE/DILAUDID 2 MG TAB PO PRN ×4 (00:27→12:50)
[2016-10-11] MEDS: ONDANSETRON 4 MG/2 ML VIAL IVP SCH ×2 (02:07→06:23)
[2016-10-11 07:36] VITALS: BP 100/66; PULSE 80; RESP 16; TEMP 98.4; O2SAT 93
[2016-10-11] MEDS: ALPRAZolam 1 MG TAB PO SCH (08:44)
[2016-10-11] MEDS: DULoxetine 60 MG CAP PO SCH (08:44)
[2016-10-11] MEDS: PHENAZOPYRIDINE HCL 200 MG TAB PO SCH ×2 (08:44→12:26)
[2016-10-11] MEDS: OXYBUTYNIN CHLORIDE 5 MG TAB PO SCH (08:45)
[2016-10-11] MEDS: Mometasone/Formoterol [Dulera 100 Mcg/5 Mcg Inhaler] 2 PUFFS IH SCH (09:31)
[2016-10-11] MEDS ORDERED: ONDANSETRON DISINTEGRATING 4 MG TAB PO SCH (10:00)
--- NOTE | 2016-10-11 10:48 | PDDCSUM ---
Discharge Summary Discharge Summary: DISCHARGE DIAGNOSES: -acute on chronic pelvic pain -symptoms suggestive of bladder spasm or possibly interstitial cystitis -inappropriate drug-seeking behaviors PROCEDURES: Pelvic ultrasound without concerning findings HOSPITAL COURSE SUMMARY: This is a patient new to our healthcare system. She has a history of chronic pelvic pain and has seen numerous doctors for this over the years and has had numerous diagnostic efforts and attempts at treatment. She says that she has not really had anyone unifying diagnosis that has been able to explain her symptoms. She has been prescribed narcotic pain medicines and has been taking these at home although it sounds like she has some heartburn bridges with her previous prescribing physicians at this time. She comes into the hospital at this time complaining of worsening pelvic pain without any change in the location or nature of the pain otherwise. There is no fever, no change in bowel function. She is not having any vaginal bleeding or discharge. During her stay she did complain to me that she felt like it was painful to empty her bladder and she was having difficulty emptying her bladder. Using bladder scanning by ultrasound we were able to identify that she was actually successfully emptying her bladder here. However as she described her discomfort she did describe some burning discomfort in the bladder per se but not the urethra. There was no fever here and urinalysis did not show any evidence of infection. It was considered that she might have interstitial cystitis or some bladder spasms. She was treated here with Detrol and Pyridium and there was some partial improvement in symptoms with those. At this point she has continued to encourage these treatments and also to follow and interstitial cystitis diet. Also I recommended that she see a urologist and she apparently has been in contact with a uro accounting manager controller and is trying to make an appointment to get in to see that Clinic and hoping to be there this week. Importantly this patient has been taking prescribed narcotics as an outpatient. She has here in the hospital exhibited some concerning behavior patterns around her requests a demands for narcotic medication. Had long discussion with her about her narcotic issues. It is my strong recommendation to her that at this point she does everything she can to work herself away from narcotic medication and to use nonnarcotic treatments for managing her different pain syndromes. As she does not have a primary care physician we are attempting to help her get hooked up with the [facility] which is where she wants to try to go next for her primary care. I can give her few tablets toe last for p.r.n. use only over the next several days until she can get in with them. PENDING TEST RESULTS: None MEDICATION CHANGES: Addition of peridium, Detrol, and p.r.n. Zofran and Phenergan FOLLOW-UP PLAN: She will be seeking a new primary care physician and she is attempting a get in with a uro accounting manager controller this week Greater than 35 minutes bedside and care coordination time today
[2016-10-11] MEDS ORDERED: PROMETHAZINE HCL 25 MG TAB PO SCH (12:00)
== END 2016-10-11 12:55 | disposition home or self-care (01) | DRG 392 ==
LOC: F1N 10-08 01:03 → OBSVTOIN 10-09 18:16
PROVIDERS: ADMIT Student in an Organized Health Care Education/Training Program; ATTEND Internal Medicine
DX: R10.2 Pelvic and perineal pain (principal); G89.29 Other chronic pain; M79.7 Fibromyalgia; F32.9 Major depressive disorder, single episode, unspecified; Z76.5 Malingerer [conscious simulation]
CPT/HCPCS: 96374; G0378; J1170; J1650; J1885; J2405; J2550

== ENCOUNTER 2016-10-25 21:29 | Emergency (ER) | payer MEDICAID ==
[2016-10-25 21:47] VITALS: RESP 18; O2SAT 95
[2016-10-25] MEDS ORDERED: ONDANSETRON DISINTEGRATING 4 MG TAB PO ONE (21:49)
[2016-10-25] MEDS ORDERED: NS 1,000 ML IV ONE (22:26)
[2016-10-25] MEDS ORDERED: PROMETHAZINE HCL 25 MG/ML INJ IVP ONE (22:27)
[2016-10-25] MEDS ORDERED: KETAMINE 500 MG/10 ML VIAL NASAL ONE (22:28)
--- NOTE | 2016-10-25 23:18 | EDPHY ---
H & P Time Seen by Provider: 10/25/16 23:14 HPI/ROS: HPI: Ms. Husain is a 30 yrs, female who presents with Chief Complaint: Pelvic pain Location:pelvic Quality: pain Duration: 3 days Signs and Symptoms: no dysuria, no nausea/vomiting, no hematuria, + vaginal discharge, no vaginal bleeding Timing: Acute on chronic Severity: 12/16 Context: Patient presents today with complaints of lower abdominal pelvic pain , acute on chronic, rapidly worsened over the last 3 days now constant and severe. Patient has a history of hysterectomy with mesh, cholecystectomy. She was admitted at the beginning of the month for the same complaints with questionable diagnosis of interstitial cystitis and acute on chronic pelvic pain with opiate dependence. With renal and pelvic ultrasound on October 07, 2016 essentially unremarkable with left adnexal cyst. CT A/P scan on October 05, 2016 showed cholecystectomy hysterectomy appendectomy and left adnexal cyst. She has seen GI and diabetes specialist realizes that he will do surgery on her in March of 2007 in order to remove the mesh. Not currently sexually active. Modifying Factors: percocet no relief Comment: ROS: Eyes: No blurred vision Respiratory: No shortness of breath, no cough Cardiovascular: No chest pain Gastrointestinal: No nausea, no vomiting no diarrhea Genitourinary: No dysuria Extremities: No myalgias Neurologic: No weakness, no numbness Skin: No rashes Hematologic: No bruising, no bleeding MEDICAL/SURGICAL HISTORY: Cholecystectomy, hysterectomy, appendectomy. Asthma. Social History: Former smoker. Single. Has 3 children at home. Smoking Status: Former smoker Physical Exam: CONSTITUTIONAL: Adult white female, well appearing awake and alert, no obvious distress HEENT: Atraumatic and normocephalic, PERRL, EOMI. Tympanic membranes clear. . Oropharynx clear, no exudate and moist pink mucosa. Airway patent. No lymphadenopathy. No meningismus. Cardiovascular: Normal S1/S2, regular rate, regular rhythm, without murmur rub or gallop. PULMONARY/CHEST: Symmetrical and nontender. Clear to auscultation bilaterally Good air movement. No accessory muscle usage. ABDOMEN: Soft, nondistended, nontender, no rebound, no guarding, no peritoneal signs, no masses or organomegaly. No CVAT. PELVIC: normal external genitalia, normal cervix, cervical os was closed, no cervical motion tenderness, no adnexal mass, scant white discharge, no bleeding. The exam was performed with a lithographic proofer apprentice. Considerable amount of pain with speculum insertion. EXTREMITIES: 2/2 pulses, no deformities, no clubbing, no cyanosis or edema. NEUROLOGICAL: no focal neuro deficits. GCS 15. SKIN: Warm and dry, no erythema. no rash. Good capillary refill. Constitutional: Initial Vital Signs Temperature (C) 37.1 C 10/25/16 21:43 Heart Rate 114 H 10/25/16 21:43 Respiratory Rate 18 10/25/16 21:43 Blood Pressure 126/93 H 10/25/16 21:43 O2 Sat (%) 95 10/25/16 21:43 O2 Delivery Mode Room Air Allergies/Adverse Reactions: codeine Allergy (Intermediate, Verified 10/25/16 21:47) Itching diphenhydramine [From Benadryl] Allergy (Intermediate, Verified 10/25/16 21:47) Itching morphine Allergy (Unknown, Verified 10/10/16 11:33) Hives Home Medications: Medication Instructions Recorded ALPRAZolam [Xanax 1 MG (*)] 1 mg PO BID 10/05/16 DULoxetine [Cymbalta 60 MG (*)] 60 mg PO DAILY10 10/05/16 oxyCODONE IR [Oxycodone Ir (*)] 5 mg PO TID #12 tab 10/11/16 Diazepam [Valium 2 MG (*)] 2 mg PO Q8HRS PRN #12 tab 10/25/16 Medical Decision Making ED Course/Re-evaluation: Pelvic exam with wet prep bacterial vaginosis GC, urinalysis. No indication to repeat labs or imaging. Given ketamine, promethazine, normal saline, haldol with moderate relief UA does not show any signs of infection Wet prep and bacterial vaginosis prep are negative The patient is to follow up with park services specialist surgery as planned Advised the ER will not prescribe chronic opiate pain medication Differential Diagnosis: Abdominal pain in a female including but not limited to ovarian cyst, pelvic inflammatory disease, ovarian torsion, urinary tract infection, and appendicitis. - Data Points Laboratory Results: 10/25/16 10/25/16 10/25/16 22:55 22:45 22:45 Urine Color PALE YELLOW Urine Appearance CLEAR Urine pH 6.0 (5.0-7.5) Ur Specific [place] 1.008 (1.002-1.030) Urine Protein NEGATIVE (NEGATIVE) Urine Ketones NEGATIVE (NEGATIVE) Urine Blood NEGATIVE (NEGATIVE) Urine Nitrate NEGATIVE (NEGATIVE) Urine Bilirubin NEGATIVE (NEGATIVE) Urine Urobilinogen NEGATIVE EU EU (0.2-1.0) Ur Leukocyte Esterase NEGATIVE (NEGATIVE) Urine Glucose NEGATIVE (NEGATIVE) Trichomonas (Wet Prep) RARE BACTERIA Ruth species DNA Pending C.trachomatis RNA (TMA) Pending Gardnerella DNA Probe Pending N.gonorrhoeae RNA (TMA) Pending Trichomonas DNA Probe Pending Medications Given: Discontinued Medications Sodium Chloride (Ns) 1,000 mls @ 0 mls/hr IV EDNOW ONE; Wide Open PRN Reason: Protocol Stop: 10/25/16 22:27 Last Admin: 10/25/16 22:43 Dose: 1,000 mls Ketamine HCl (Ketamine) 50 mg NASAL EDNOW ONE Stop: 10/25/16 22:29 Last Admin: 10/25/16 22:44 Dose: 50 mg Ondansetron HCl (Zofran Odt) 4 mg PO EDNOW ONE Stop: 10/25/16 21:50 Last Admin: 10/25/16 21:51 Dose: 4 mg Promethazine HCl (Phenergan) 25 mg IVP EDNOW ONE Stop: 10/25/16 22:28 Last Admin: 10/25/16 22:43 Dose: 25 mg Departure - Departure Disposition: Home, Routine, Self-Care Clinical Impression: Chronic female pelvic pain Condition: Good Instructions: Pelvic Pain in Women (ED) Additional Instructions: Keep follow-up appointment with Dr. Baltazar. Referrals: NONE *PRIMARY CARE P,. [Primary Care Provider] - As per Instructions [facility],. [Clinic] - As per Instructions Prescriptions: Diazepam [Valium 2 MG (*)] 2 mg PO Q8HRS PRN #12 tab PRN Reason: Spasms
[2016-10-25 23:39] LABS: COLOR PALE YELLOW; LEUKOCYTE ESTERASE,URINE NEGATIVE (NEGATIVE); NITRITE,URINE NEGATIVE (NEGATIVE)
[2016-10-25] MEDS ORDERED: HALOPERIDOL LACT 5 MG/ML INJ IVP ONE (23:40)
[2016-10-26] MEDS ORDERED: HYDROmorphONE/DILAUDID 1 MG/ML SYR IVP ONE (00:41)
[2016-10-26 00:58] VITALS: BP 115/79; PULSE 104; TEMP 97.9
[2016-10-27 13:29] LABS: CHLAMYDIA AMPLIFICATION GENPRB NEGATIVE (NEGATIVE)
== END 2016-10-26 00:57 | disposition home or self-care (01) ==
DX: R10.2 Pelvic and perineal pain (principal); G89.29 Other chronic pain; E86.9 Volume depletion, unspecified; Z87.891 Personal history of nicotine dependence; Z90.49 Acquired absence of other specified parts of digestive tract; Z90.710 Acquired absence of both cervix and uterus
CPT/HCPCS: 96374; J1170; J1200; J2550

== ENCOUNTER 2016-12-20 19:40 | Emergency (ER) | payer MEDICAID ==
[2016-12-20] MEDS ORDERED: NS 1,000 ML IV ONE ×2 (19:53→23:09)
--- NOTE | 2016-12-20 19:53 | EDPHY ---
H & P Stated Complaint: ANXIETY WITH S/P SURGICAL ISSUES HPI/ROS: HPI CHIEF COMPLAINT: Anxiety, fast heart rate HISTORY OF PRESENT ILLNESS: Patient is a very pleasant 31-year-old female she has significant past medical history for chronic pelvic pain. She reports that she had surgery to remove pelvic mesh back in December 03. She states she has chronic pelvic pain her pain is no worse today than it normally is. She denies any new complaints however she states that she has had a recent in her family which is her mother. Additionally she reports her grandmother 2 months ago. She has been very stressed and feeling very anxious. She feels as if she is having a panic attack that she took her pulse at home was 140s and could not get it to come down so she decided come the emergency room. This made her more anxious. Upon arrival to the emergency room she denies any chest pain or shortness of breath. Denies pleuritic pain. Her main complaint is anxiety and feeling fast heart rate. Past Medical History: questionable interstitial cystitis Past Surgical History: Hysterectomy, cholecystectomy, appendectomy Social History: Denies drugs alcohol tobacco. Family History: Noncontributory ROS REVIEW OF SYSTEMS: A comprehensive 10 point review of systems is otherwise negative aside from elements mentioned in the history of present illness. Exam Constitutional anxious, triage nursing summary reviewed, vital signs reviewed, awake/alert. Vital signs reviewed at triage. Tachycardic. Eyes normal conjunctivae and sclera, EOMI, PERRLA. HENT normal inspection, atraumatic, moist mucus membranes, no epistaxis, neck supple/ no meningismus, no raccoon eyes. Respiratory clear to auscultation bilaterally, normal breath sounds, no respiratory distress, no wheezing. Cardiovascular tachycardic, regular rhythm, no murmur, no edema, distal pulses normal. Gastrointestinal soft, non-tender, no rebound, no guarding, normal bowel sounds, no distension, no pulsatile mass. Genitourinary no CVA tenderness. Musculoskeletal no midline vertebral tenderness, full range of motion, no calf swelling, no tenderness of extremities, no meningismus, good pulses, neurovascularly intact. Skin pink, warm, & dry, no rash, skin atraumatic. Neurologic awake, alert and oriented x 3, AAOx3, moves all 4 extremities equally, motor intact, sensory intact, CN II-XII intact, normal cerebellar, normal vision, normal speech. Psychiatric anxious, Heme/Lymph/Immune no lymphadenopathy. Differential Diagnosis: Includes but is not limited to in a particular order acute anxiety attack, panic attack, electrolyte disturbance, dehydration, cardiac arrhythmia Medical Decision Making: Plan for this patient IV establishment, EKG due to tachycardia, IV fluid bolus, 1 mg IV Ativan for anxiety, 1 mg Dilaudid for pain control. Check blood work including CBC and electrolytes. Re-evaluate. Re-evaluation: EKG interpretation by me on record in [employer] system. Impression this EKG shows an extremely wandering baseline, however EKG shows sinus tachycardia rate of 108. Time of EKG 2023. I do not appreciate any signs of cardiac arrhythmia acute ischemia. Wavy baseline noted. 2132: Patient resting comfortably feels much better after IV Ativan. Heart rate greatly improved. Blood work has been reviewed is unremarkable. 2217: Re-examination at this time heart rate down to 105. She is feeling much better after IV Ativan IV Dilaudid. Denies any significant pain at this time. However she still states she is very anxious. Will re-dose Ativan and Dilaudid. And re-evaluate. 2257: Resting and comfortable. Re-examination heart rate down to 100. No chest pain no shortness of breath abdomen is soft nontender. Feels better after multiple rounds of anxiety medicine and pain medicine. Recommend close follow-up with her doctor. Return precautions given. Return if any worsening symptoms questions or concerns she understands. Source: Patient - Personal History LMP (Females 10-55): Hysterectomy Current Tetanus/Diphtheria Vaccine: Yes Tetanus Vaccine Date: 2013 - Medical/Surgical History Hx Asthma: No Hx Chronic Respiratory Disease: No Hx Diabetes: No Hx Cardiac Disease: No Hx Renal Disease: No Hx Cirrhosis: No Hx Alcoholism: No Hx HIV/AIDS: No Hx Splenectomy or Spleen Trauma: No Other PMH: ANXIETY. kidney stones, anxiety. hysterectomy 04/25; bladder mesh; fibromyalgia. - Social History Smoking Status: Heavy smoker Constitutional: Initial Vital Signs Temperature (C) 37.5 C 12/20/16 19:46 Heart Rate 130 H 12/20/16 19:46 Respiratory Rate 20 12/20/16 19:46 Blood Pressure 148/103 H 12/20/16 19:46 O2 Sat (%) 97 12/20/16 19:46 O2 Delivery Mode Room Air Allergies/Adverse Reactions: codeine Allergy (Intermediate, Verified 10/25/16 21:47) Itching diphenhydramine [From Benadryl] Allergy (Intermediate, Verified 10/25/16 21:47) Itching morphine Allergy (Unknown, Verified 10/10/16 11:33) Hives Home Medications: Medication Instructions Recorded ALPRAZolam [Xanax 1 MG (*)] 1 mg PO BID 10/05/16 DULoxetine [Cymbalta 60 MG (*)] 60 mg PO DAILY10 10/05/16 oxyCODONE IR [Oxycodone Ir (*)] 5 mg PO TID #12 tab 10/11/16 Medical Decision Making - Data Points Laboratory Results: Laboratory Results 12/20/16 20:10 12/20/16 20:10 12/20/16 12/20/16 12/20/16 20:20 20:10 20:10 WBC RBC Hgb Hct MCV MCH MCHC RDW Plt Count MPV Neut % (Auto) Lymph % (Auto) Ul[place] % (Auto) Eos % (Auto) Baso % (Auto) Nucleat RBC Rel Count Absolute Neuts (auto) Absolute Lymphs (auto) Absolute Monos (auto) Absolute Eos (auto) Absolute Basos (auto) Absolute Nucleated RBC Immature Gran % Immature Gran # D-Dimer 0.43 ug/mLFEU ug/mLFEU (0.00-0.50) Sodium 136 mEq/L mEq/L (134-144) Potassium 3.7 mEq/L mEq/L (3.5-5.2) Chloride 103 mEq/L mEq/L (97-110) Carbon Dioxide 22 mEq/l mEq/l (22-31) Anion Gap 11 mEq/L mEq/L (8-16) BUN 6 mg/dL L mg/dL (7-23) Creatinine 0.7 mg/dL mg/dL (0.6-1.0) Estimated GFR > 60 Glucose 104 mg/dL H mg/dL (70-100) Calcium 10.1 mg/dL mg/dL (8.5-10.4) Total Bilirubin 0.6 mg/dL mg/dL (0.1-1.4) Conjugated Bilirubin 0.3 mg/dL mg/dL (0.0-0.5) Unconjugated Bilirubin 0.3 mg/dL mg/dL (0.0-1.1) AST 19 IU/L IU/L (14-46) ALT 35 IU/L IU/L (9-52) Alkaline Phosphatase 92 IU/L IU/L (38-126) Troponin I < 0.012 ng/mL ng/mL (0.000-0.034) Total Protein 7.7 g/dL g/dL (6.3-8.2) Albumin 4.5 g/dL g/dL (3.5-5.0) Lipase 64 IU/L IU/L (23-300) TSH 1.820 uIU/mL uIU/mL (0.465-4.680) Urine Color YELLOW Urine Appearance CLEAR Urine pH 6.0 (5.0-7.5) Ur Specific Antelope 1.015 (1.002-1.030) Urine Protein NEGATIVE (NEGATIVE) Urine Ketones 2+ H (NEGATIVE) Urine Blood 1+ H (NEGATIVE) Urine Nitrate NEGATIVE (NEGATIVE) Urine Bilirubin NEGATIVE (NEGATIVE) Urine Urobilinogen NEGATIVE EU EU (0.2-1.0) Ur Leukocyte Esterase TRACE H (NEGATIVE) Urine RBC 10-15 /hpf H /hpf (0-3) Urine WBC 1-3 /hpf /hpf (0-3) Ur Epithelial Cells TRACE /lpf /lpf (NONE-1+) Urine Mucus TRACE /lpf /lpf (NONE-1+) Urine Glucose NEGATIVE (NEGATIVE) 12/20/16 20:10 WBC 11.51 10^3/uL H 10^3/uL (3.80-9.50) RBC 4.18 10^6/uL 10^6/uL (4.18-5.33) Hgb 13.2 g/dL g/dL (12.6-16.3) Hct 38.4 % % (38.0-47.0) MCV 91.9 fL fL (81.5-99.8) MCH 31.6 pg pg (27.9-34.1) MCHC 34.4 g/dL g/dL (32.4-36.7) RDW 14.5 % % (11.5-15.2) Plt Count 356 10^3/uL 10^3/uL (150-400) MPV 8.6 fL L fL (8.7-11.7) Neut % (Auto) 65.3 % % (39.3-74.2) Lymph % (Auto) 27.7 % % (15.0-45.0) Ulster % (Auto) 5.3 % % (4.5-13.0) Eos % (Auto) 0.9 % % (0.6-7.6) Baso % (Auto) 0.3 % % (0.3-1.7) Nucleat RBC Rel Count 0.0 % % (0.0-0.2) Absolute Neuts (auto) 7.51 10^3/uL H 10^3/uL (1.70-6.50) Absolute Lymphs (auto) 3.19 10^3/uL H 10^3/uL (1.00-3.00) Absolute Monos (auto) 0.61 10^3/uL 10^3/uL (0.30-0.80) Absolute Eos (auto) 0.10 10^3/uL 10^3/uL (0.03-0.40) Absolute Basos (auto) 0.04 10^3/uL 10^3/uL (0.02-0.10) Absolute Nucleated RBC 0.00 10^3/uL 10^3/uL (0-0.01) Immature Gran % 0.5 % % (0.0-1.1) Immature Gran # 0.06 10^3/uL 10^3/uL (0.00-0.10) D-Dimer Sodium Potassium Chloride Carbon Dioxide Anion Gap BUN Creatinine Estimated GFR Glucose Calcium Total Bilirubin Conjugated Bilirubin Unconjugated Bilirubin AST ALT Alkaline Phosphatase Troponin I Total Protein Albumin Lipase TSH Urine Color Urine Appearance Urine pH Ur Specific Antelope Urine Protein Urine Ketones Urine Blood Urine Nitrate Urine Bilirubin Urine Urobilinogen Ur Leukocyte Esterase Urine RBC Urine WBC Ur Epithelial Cells Urine Mucus Urine Glucose Medications Given: Discontinued Medications Hydromorphone HCl (Dilaudid) 1 mg IVP EDNOW ONE Stop: 12/20/16 19:59 Last Admin: 12/20/16 20:12 Dose: 1 mg Hydromorphone HCl (Dilaudid) 1 mg IVP EDNOW ONE Stop: 12/20/16 22:18 Last Admin: 12/20/16 22:28 Dose: 1 mg Sodium Chloride (Ns) 1,000 mls @ 0 mls/hr IV EDNOW ONE; Wide Open PRN Reason: Protocol Stop: 12/20/16 19:54 Last Admin: 12/20/16 20:05 Dose: 1,000 mls Sodium Chloride (Ns) 1,000 mls @ 0 mls/hr IV ONCE ONE PRN Reason: Wide Open Stop: 12/20/16 23:10 Last Admin: 12/20/16 23:16 Dose: 1,000 mls Lorazepam (Ativan Injection) 1 mg IVP EDNOW ONE Stop: 12/20/16 19:59 Last Admin: 12/20/16 20:11 Dose: 1 mg Lorazepam (Ativan Injection) 1 mg IVP EDNOW ONE Stop: 12/20/16 22:18 Last Admin: 12/20/16 22:28 Dose: 1 mg Departure - Departure Disposition: Home, Routine, Self-Care Clinical Impression: Anxiety Condition: Good Instructions: Anxiety (ED) Additional Instructions: 1. Return emergency room if he develops worsening symptoms includes chest pain, shortness of breath or feeling more anxious. Referrals: NONE *PRIMARY CARE P,. [Primary Care Provider] - As per Instructions
[2016-12-20] MEDS ORDERED: HYDROmorphONE/DILAUDID 1 MG/ML INJ IVP ONE ×2 (19:58→22:17)
[2016-12-20] MEDS ORDERED: LORazepam 2 MG/ML INJ IVP ONE ×2 (19:58→22:17)
[2016-12-20 20:19] LABS: % IMMATURE GRANULYOCYTES 0.5 % (0.0-1.1); ABSOLUTE IMMATURE GRANULOCYTES 0.06 10^3/uL (0.00-0.10); ADD DIFF? NO; ADD MORPH? NO; ADD SCAN? NO; ATYPICAL LYMPHOCYTE FLAG 0 (0-99); FRAGMENT RBC FLAG 0 (0-99); HEMATOCRIT 38.4 % (38.0-47.0); HEMOGLOBIN 13.2 g/dL (12.6-16.3); LEFT SHIFT FLG 0 (0-99); LIPEMIA HEMOLYSIS FLAG 90 (0-99); MEAN CELL HEMOGLOBIN 31.6 pg (27.9-34.1); MEAN CELL HEMOGLOBIN CONCENTR. 34.4 g/dL (32.4-36.7); MEAN CELL VOLUME 91.9 fL (81.5-99.8); MEAN PLATELET VOLUME 8.6 fL (8.7-11.7); PLATELET CLUMPS FLAG 0 (0-99); PLATELET COUNT 356 10^3/uL (150-400); RED BLOOD CELL COUNT 4.18 10^6/uL (4.18-5.33); RED CELL DISTRIBUTION WIDTH 14.5 % (11.5-15.2)
--- NOTE | 2016-12-20 20:26 | CPEKG ---
Heart Rate: 108 RR Interval: 556 P-R Interval: 108 QRSD Interval: 82 QT Interval: 348 QTC Interval: 467 P Piedmont: 30 QRS P[place]: 83 T Wave P[place]mont: 40 EKG Severity - OTHERWISE NORMAL ECG - EKG Impression: SINUS TACHYCARDIA Electronically Signed By: Hema Romero 26-Dec-2016 11:59:04
[2016-12-20 20:35] LABS: ALANINE AMINOTRANSFERASE 35 IU/L (9-52); ALBUMIN 4.5 g/dL (3.5-5.0); ALKALINE PHOSPHATASE 92 IU/L (38-126); ANION GAP 11 mEq/L (8-16); ASPARTATE AMINOTRANSFERASE 19 IU/L (14-46); BILIRUBIN,TOTAL 0.6 mg/dL (0.1-1.4); BILIRUBIN-CONJUGATED 0.3 mg/dL (0.0-0.5); BILIRUBIN-UNCONJUGATED 0.3 mg/dL (0.0-1.1); CALCIUM 10.1 mg/dL (8.5-10.4); CARBON DIOXIDE 22 mEq/l (22-31); CHLORIDE 103 mEq/L (97-110); CREATININE 0.7 mg/dL (0.6-1.0); GLOMERULAR FILTRATION RATE > 60; GLUCOSE 104 mg/dL (70-100); POTASSIUM 3.7 mEq/L (3.5-5.2); SODIUM 136 mEq/L (134-144); TOTAL PROTEIN 7.7 g/dL (6.3-8.2)
[2016-12-20 20:39] LABS: COLOR YELLOW; LEUKOCYTE ESTERASE,URINE TRACE (NEGATIVE); NITRITE,URINE NEGATIVE (NEGATIVE)
[2016-12-20 20:47] LABS: TROPONIN I < 0.012 ng/mL (0.000-0.034)
[2016-12-20 20:49] LABS: MUCUS TRACE /lpf (NONE-1+)
[2016-12-21 00:23] VITALS: BP 107/66; PULSE 104; RESP 18; TEMP 98.2; O2SAT 94
[2016-12-21] MEDS ORDERED: OXYCODONE/APAP 5/325 TAB PO ONE (00:26)
[2016-12-21] MEDS ORDERED: OXYCODONE/APAP 5/325MG PREPACK#4 BTL TAKEHOME ONE (00:26)
== END 2016-12-21 00:50 | disposition home or self-care (01) ==
DX: F41.9 Anxiety disorder, unspecified (principal); E86.9 Volume depletion, unspecified; F17.200 Nicotine dependence, unspecified, uncomplicated
CPT/HCPCS: 96374; J1170; J2060

== ENCOUNTER 2016-12-27 22:49 | Emergency (ER) | payer MEDICAID ==
[2016-12-27] MEDS ORDERED: LORazepam 2 MG/ML INJ IVP ONE (23:37)
[2016-12-27] MEDS ORDERED: KETOROLAC 30 MG/1 ML SDV IVP ONE (23:37)
[2016-12-27] MEDS ORDERED: NS 1,000 ML IV ONE (23:37)
--- NOTE | 2016-12-27 23:43 | EDPHY ---
H & P Smoking Status: Heavy smoker Time Seen by Provider: 12/27/16 22:49 HPI/ROS: CHIEF COMPLAINT: Abdominal pain HISTORY OF PRESENT ILLNESS: 31-year-old female presents to the emergency department by ambulance complaining of severe pelvic pain. Patient has a history of chronic pelvic pain as on narcotic medication for this. She had a hysterectomy in April 2016 and had mesh placed. She had a postoperative complication. She had the mesh removed 12/03/2016. She has had ongoing chronic pelvic pain. She states that she has been passing "large vaginal clots ". No urinary symptoms. No reported trauma. No back pain. No fevers or chills. No nausea or vomiting. She states that her primary care provider left and she is looking for a new primary care provider. REVIEW OF SYSTEMS: Constitutional: No fever, no chills. Eyes: No double or blurry vision. ENT: No sore throat. Respiratory: No cough, no shortness of breath. Cardiac: No chest pain. Gastrointestinal: Abdominal pain as above. No vomiting or diarrhea Genitourinary: No dysuria. Musculoskeletal: No neck or back pain. Skin: No rashes. Neurological: No headache. (Stephanie Goodwin) Past Medical/Surgical History: Chronic pelvic pain, hysterectomy with mesh placed April 2016, cholecystectomy, narcotic dependence (Stephanie Goodwin) Social History: Single (Stephanie Goodwin) Physical Exam: General Appearance: Alert, no distress. Tearful. Eyes: Pupils equal and round. Extraocular motions are all intact. ENT: Mouth: Mucous membranes moist. Respiratory: No wheezing, rhonchi, or rales, lungs are clear to auscultation. Cardiovascular: Regular rate and rhythm. Gastrointestinal: Abdomen is soft and nontender, no masses, no rebound or guarding, bowel sounds normal. Genitourinary: Normal female external genitalia. Pelvic exam performed with nurse, Deirdre, at bedside. On speculum examination, there is no evidence of vaginal bleeding or redness or tears. Neurological: Alert and oriented x 3, cranial nerves II through XII grossly intact Skin: Warm and dry, no rashes. Musculoskeletal: Nontender to palpate along the cervical, thoracic or lumbar spine. Neck is supple. Extremities: Full range of motion and no peripheral edema. Psychiatric: Patient is oriented X 3, there is no agitation. (Stephanie Goodwin) Constitutional: Initial Vital Signs Temperature (C) 36.9 C 12/27/16 22:54 Heart Rate 131 H 12/27/16 22:54 Respiratory Rate 17 12/27/16 22:54 Blood Pressure 128/72 H 12/27/16 22:54 O2 Sat (%) 96 12/27/16 22:54 O2 Delivery Mode Room Air Allergies/Adverse Reactions: codeine Allergy (Intermediate, Verified 12/27/16 22:54) Itching diphenhydramine [From Benadryl] Allergy (Intermediate, Verified 12/27/16 22:54) Itching morphine Allergy (Unknown, Verified 12/27/16 22:54) Hives Home Medications: Medication Instructions Recorded ALPRAZolam [Xanax 1 MG (*)] 1 mg PO BID 10/05/16 DULoxetine [Cymbalta 60 MG (*)] 60 mg PO DAILY10 10/05/16 oxyCODONE IR [Oxycodone Ir (*)] 5 mg PO TID #12 tab 10/11/16 Medical Decision Making ED Course/Re-evaluation: 31-year-old female presents to the emergency department with chronic pelvic pain. She is having acute exacerbation of this. She is followed by a physician at [facility]. She has seen a uro ehs teacher for this. She takes chronic opiates. She denies any change in symptoms. No new trauma. She states that she has had vaginal bleeding. She however has had a hysterectomy in April. The patient is tearful. She is anxious. She is tachycardic. I did review her history from previous visits to the emergency department as well as the [place] prescription drug monitoring program. The patient has numerous prescriptions for narcotics. I did also speak with the [facility] telephone medicine provider and they also state that her chart has been flagged for suspicious narcotic-seeking behavior. I explained to the patient that we would not provide narcotic medication for emergency department. I offered Toradol IV as well as IV normal saline. The patient was requesting to speak with "a different doctor ". I spoke with Dr. Campbell, secondary supervising physician, who also evaluated the patient and agrees that the patient will not receive narcotic medication. The patient would like to be discharged home. I offered pelvic ultrasound. Patient declined. She does not want any further testing. (Stephanie Goodwin) Differential Diagnosis: Including but not limited to chronic pelvic pain, narcotic dependence, ovarian cyst, ovarian torsion, urinary tract infection, pyelonephritis, kidney stone ( Stephanie Goodwin) Other Provider: ED PA DICTATION I evaluated and participated in the management of the patient. I also evaluated the patient independently. My co-signature indicates that I have reviewed this chart and I agree with the findings and plan of care as documented. My personal H&P findings include: This is a 31-year-old female with complex past medical history involving chronic pelvic pain who presents with recurrence of her pain. She is asking for IV opiate pain medications for her pain explicitly. She tells me that she is no longer able to be seen at [facility] because of some issues with pain control and has been to other hospitals as well. She is primarily followed by [facility]. She was here in the emergency department 1 week ago for similar pain and was given Dilaudid 2 mg and Ativan 2 mg and this helped her significantly. She is asking for the same today. I explained to her that we do not treat chronic pain in the emergency department and she will need to follow up with her usual treating physicians for this. I have concern that she is opiate seeking. I have offered her alternatives to these medications including Toradol, lidocaine. She has received Toradol without any improvement and declines lidocaine, rather asks for a taxi voucher to go home. She will be discharged from the emergency department. She is tachycardic, however this seems similar to prior episodes here. (Emily Campbell) - Data Points Laboratory Results: Laboratory Results 12/27/16 23:00 12/27/16 23:00 12/27/16 12/27/16 23:00 23:00 WBC 12.73 10^3/uL H 10^3/uL (3.80-9.50) RBC 4.08 10^6/uL L 10^6/uL (4.18-5.33) Hgb 12.9 g/dL g/dL (12.6-16.3) Hct 38.1 % % (38.0-47.0) MCV 93.4 fL fL (81.5-99.8) MCH 31.6 pg pg (27.9-34.1) MCHC 33.9 g/dL g/dL (32.4-36.7) RDW 14.1 % % (11.5-15.2) Plt Count 538 10^3/uL H 10^3/uL (150-400) MPV 8.9 fL fL (8.7-11.7) Neut % (Auto) 53.5 % % (39.3-74.2) Lymph % (Auto) 38.2 % % (15.0-45.0) Osborne % (Auto) 5.1 % % (4.5-13.0) Eos % (Auto) 2.4 % % (0.6-7.6) Baso % (Auto) 0.5 % % (0.3-1.7) Nucleat RBC Rel Count 0.0 % % (0.0-0.2) Absolute Neuts (auto) 6.81 10^3/uL H 10^3/uL (1.70-6.50) Absolute Lymphs (auto) 4.86 10^3/uL H 10^3/uL (1.00-3.00) Absolute Monos (auto) 0.65 10^3/uL 10^3/uL (0.30-0.80) Absolute Eos (auto) 0.30 10^3/uL 10^3/uL (0.03-0.40) Absolute Basos (auto) 0.07 10^3/uL 10^3/uL (0.02-0.10) Absolute Nucleated RBC 0.00 10^3/uL 10^3/uL (0-0.01) Immature Gran % 0.3 % % (0.0-1.1) Immature Gran # 0.04 10^3/uL 10^3/uL (0.00-0.10) Sodium 141 mEq/L mEq/L (134-144) Potassium 4.6 mEq/L mEq/L (3.5-5.2) Chloride 101 mEq/L mEq/L (97-110) Carbon Dioxide 26 mEq/l mEq/l (22-31) Anion Gap 14 mEq/L mEq/L (8-16) BUN 10 mg/dL mg/dL (7-23) Creatinine 0.6 mg/dL mg/dL (0.6-1.0) Estimated GFR > 60 Glucose 101 mg/dL H mg/dL (70-100) Calcium 9.2 mg/dL mg/dL (8.5-10.4) Medications Given: Discontinued Medications Sodium Chloride (Ns) 1,000 mls @ 0 mls/hr IV ONCE ONE PRN Reason: Wide Open Stop: 12/27/16 23:38 Last Admin: 12/27/16 23:43 Dose: 1,000 mls Ketorolac Tromethamine (Toradol) 30 mg IVP EDNOW ONE Stop: 12/27/16 23:38 Last Admin: 12/27/16 23:45 Dose: 30 mg Lorazepam (Ativan Injection) 1 mg IVP EDNOW ONE Stop: 12/27/16 23:38 Last Admin: 12/27/16 23:44 Dose: 1 mg Departure - Departure Disposition: Home, Routine, Self-Care Clinical Impression: Chronic pelvic pain in female Abdominal pain Qualifiers: Abdominal location: lower abdomen, unspecified Qualified Code(s): R10.30 - Lower abdominal pain, unspecified Condition: Good Instructions: Pelvic Pain in Women (ED) Additional Instructions: Abdominal Pain: Return to the Emergency Department immediately for increasing pain, fever, vomiting, or if not completely better in 8-12 hours. Follow-up with your primary care provider. Referrals: [facility] ,. [Edm Groups for Call Sched] - As per Instructions Stand Alone Forms: Narcotic Guidelines
[2016-12-27 23:50] LABS: ANION GAP 14 mEq/L (8-16); CALCIUM 9.2 mg/dL (8.5-10.4); CARBON DIOXIDE 26 mEq/l (22-31); CHLORIDE 101 mEq/L (97-110); CREATININE 0.6 mg/dL (0.6-1.0); GLOMERULAR FILTRATION RATE > 60; GLUCOSE 101 mg/dL (70-100); POTASSIUM 4.6 mEq/L (3.5-5.2); SODIUM 141 mEq/L (134-144)
[2016-12-28 00:03] LABS: % IMMATURE GRANULYOCYTES 0.3 % (0.0-1.1); ABSOLUTE IMMATURE GRANULOCYTES 0.04 10^3/uL (0.00-0.10); ADD DIFF? NO; ADD MORPH? NO; ADD SCAN? NO; ATYPICAL LYMPHOCYTE FLAG 0 (0-99); FRAGMENT RBC FLAG 10 (0-99); HEMATOCRIT 38.1 % (38.0-47.0); HEMOGLOBIN 12.9 g/dL (12.6-16.3); LEFT SHIFT FLG 0 (0-99); LIPEMIA HEMOLYSIS FLAG 90 (0-99); MEAN CELL HEMOGLOBIN 31.6 pg (27.9-34.1); MEAN CELL HEMOGLOBIN CONCENTR. 33.9 g/dL (32.4-36.7); MEAN CELL VOLUME 93.4 fL (81.5-99.8); MEAN PLATELET VOLUME 8.9 fL (8.7-11.7); PLATELET CLUMPS FLAG 0 (0-99); PLATELET COUNT 538 10^3/uL (150-400); RED BLOOD CELL COUNT 4.08 10^6/uL (4.18-5.33); RED CELL DISTRIBUTION WIDTH 14.1 % (11.5-15.2)
[2016-12-28 00:35] VITALS: BP 125/74; PULSE 103; RESP 16; TEMP 97.9; O2SAT 97
== END 2016-12-28 00:35 | disposition home or self-care (01) ==
LOC: EDUNIT#
PROC: 3E0337Z Introduction of Electrolytic and Water Balance Substance into Peripheral Vein, Percutaneous Approach (ICD-10-PCS; principal; 2016-12-27)
DX: R10.2 Pelvic and perineal pain (principal); R10.30 Lower abdominal pain, unspecified; G89.29 Other chronic pain; F17.200 Nicotine dependence, unspecified, uncomplicated; Z90.710 Acquired absence of both cervix and uterus
CPT/HCPCS: 96374; J1885; J2060

== ENCOUNTER 2017-01-16 14:18 | Emergency (ER) | payer MEDICAID ==
[2017-01-16] MEDS ORDERED: KETAMINE 100 MG/10 ML SYR IVP ONE (15:38)
[2017-01-16 15:42] LABS: % IMMATURE GRANULYOCYTES 0.6 % (0.0-1.1); ABSOLUTE IMMATURE GRANULOCYTES 0.09 10^3/uL (0.00-0.10); ADD DIFF? NO; ADD MORPH? NO; ADD SCAN? NO; ATYPICAL LYMPHOCYTE FLAG 10 (0-99); FRAGMENT RBC FLAG 0 (0-99); HEMATOCRIT 40.3 % (38.0-47.0); HEMOGLOBIN 13.6 g/dL (12.6-16.3); LEFT SHIFT FLG 0 (0-99); LIPEMIA HEMOLYSIS FLAG 80 (0-99); MEAN CELL HEMOGLOBIN 30.8 pg (27.9-34.1); MEAN CELL HEMOGLOBIN CONCENTR. 33.7 g/dL (32.4-36.7); MEAN CELL VOLUME 91.2 fL (81.5-99.8); MEAN PLATELET VOLUME 8.7 fL (8.7-11.7); PLATELET CLUMPS FLAG 0 (0-99); PLATELET COUNT 387 10^3/uL (150-400); RED BLOOD CELL COUNT 4.42 10^6/uL (4.18-5.33); RED CELL DISTRIBUTION WIDTH 14.7 % (11.5-15.2)
[2017-01-16] MEDS ORDERED: NS 1,000 ML IV ONE (15:42)
--- NOTE | 2017-01-16 15:42 | EDPHY ---
H & P Stated Complaint: LOWER ABD PAIN, N/V/D, BLADDER MESH REMOVAL 12/03 - Personal History Current Tetanus Diphtheria and Acellular Pertussis (TDAP): Yes Tetanus Vaccine Date: 2013 - Medical/Surgical History Hx Asthma: No Hx Chronic Respiratory Disease: No Hx Diabetes: No Hx Cardiac Disease: No Hx Renal Disease: No Hx Cirrhosis: No Hx Alcoholism: No Hx HIV/AIDS: No Hx Splenectomy or Spleen Trauma: No Other PMH: ANXIETY. kidney stones, anxiety. hysterectomy 04/25; bladder mesh- REMOVED 12/03/16; fibromyalgia. - Social History Smoking Status: Heavy smoker Time Seen by Provider: 01/16/17 15:17 HPI/ROS: CHIEF COMPLAINT: Suprapubic discomfort x1 month HISTORY OF PRESENT ILLNESS: 31-year-old female status post bladder pelvic sling surgery with mesh removal in November 2016. She has had ongoing chronic suprapubic and pelvic pain issues for which she is followed by her OBGYN at [place]. She has been seen emergency department previously for similar. She is in the ER complaining of her chronic pelvic pain/suprapubic pain. Intermittent passage of clots. Positive dysuria. No back or flank pain. No fever or chills. No nausea or vomiting. No acute trauma. PRIMARY CARE PROVIDER: Gonzalez REVIEW OF SYSTEMS: A ten point review of systems was performed and is negative with the exception of the items mentioned in the HPI PAST MEDICAL & SURGICAL HISTORY: Chronic pelvic pain. Partial hysterectomy with mesh. Narcotic dependence. Appendectomy. Cholecystectomy. SOCIAL HISTORY: single PHYSICAL EXAM (Prior to examination, patient consented to physical exam, hands were washed and my usual and customary physical exam procedures followed) 1) GENERAL: alert and oriented. Tearful 2) HEAD: Normocephalic, atraumatic 3) HEENT: Pupils equal, round, reactive to light bilaterally. Sclera anicteric. 4) NECK: Full range of motion, no meningeal signs. 5) LUNGS: Clear auscultation bilaterally, no wheezes, no rhonchi, no retractions. 6) HEART: Regular rate and rhythm, no murmur, no heave, no gallop. 7) ABDOMEN: No guarding, mild tenderness to palpation suprapubic region, negative McBurney's, negative Amaro's, negative Rovsing's, negative peritoneal sign, 8) MUSCULOSKELETAL: Moving all extremities, no focal areas of tenderness, no obvious trauma. No peripheral edema or discoloration. 9) BACK: No CVA tenderness no visual or palpable abnormality. 10) SKIN: No rash, no petechiae. 11) Psychiatric: Patient is oriented X 3, there is no agitation. DIFFERENTIAL DIAGNOSIS: My differential diagnosis includes, but is not limited to, acute appendicitis, acute cholecystitis, bowel obstruction, acute pancreatitis, ovarian torsion, ectopic , gastritis and urinary tract infection. The patient understands that this diagnosis is provisional and can never be 100% accurate. This is a partial list of diagnoses considered. These considerations are based on history, physical exam, past history and reassessment. (Raimundo Estes) Constitutional: Initial Vital Signs Temperature (C) 36.6 C 01/16/17 14:31 Heart Rate 121 H 01/16/17 14:31 Respiratory Rate 18 01/16/17 14:31 Blood Pressure 131/102 H 01/16/17 14:31 O2 Sat (%) 98 01/16/17 14:31 O2 Delivery Mode Room Air Allergies/Adverse Reactions: codeine Allergy (Intermediate, Verified 01/16/17 14:30) Itching Home Medications: Medication Instructions Recorded ALPRAZolam [Xanax 1 MG (*)] 1 mg PO BID 10/05/16 DULoxetine [Cymbalta 60 MG (*)] 60 mg PO DAILY10 10/05/16 oxyCODONE IR [Oxycodone Ir (*)] 5 mg PO TID #12 tab 10/11/16 Medical Decision Making - Diagnostics Imaging Results: Imaging Impressions Pelvic/Renal Ultrasound 01/16/17 15:37 Impression: 1. Prior hysterectomy. 2. No ovarian torsion or significant free fluid. 3. Left ovarian complex cyst or cystic lesion measuring 2.2 x 2 x 1.7 cm which appears smaller than on previous study, with an adjacent simple cyst or dominant follicle measuring 1.7 x 1.5 x 1.2 cm. 4. Recommend follow-up ultrasound in 6-12 weeks to ensure resolution. Findings and recommendations discussed with Emergency Department physician's assistant broker, Raimundo Estes, at 1659 hours, 01/16/2017. Final report concurs with initial preliminary interpretation. ED Course/Re-evaluation: 3:41 p.m.: Old medical records reviewed by myself, patient does express her displeasure prior emergency department visits as being "labled a drug seeker ". Plan will be urinalysis, hematologic studies, pelvic ultrasonography, alternatives to opiate therapy in the emergency department she is opiate dependent 4:55 p.m.: Patient complained of continued pain after Toradol, ketamine. We discussed alternatives opiate therapy. Will administer Haldol and re-evaluate. Ultrasound result pending. 5:00 p.m. care turned over to Dr. Andrew Stack. Ultrasound pending. (Raimundo Estse ) Other Provider: Patient evaluated personally by myself at 6:45 p.m.. She is comfortable now. Medications she received were discussed. She says she feels comfortable going home and has follow-up with specialist next week on . (Andrew Stack) - Data Points Laboratory Results: Laboratory Results 01/16/17 15:20 01/16/17 15:20 01/16/17 01/16/17 01/16/17 15:45 15:20 15:20 WBC RBC Hgb Hct MCV MCH MCHC RDW Plt Count MPV Neut % (Auto) Lymph % (Auto) Tift % (Auto) Eos % (Auto) Baso % (Auto) Nucleat RBC Rel Count Absolute Neuts (auto) Absolute Lymphs (auto) Absolute Monos (auto) Absolute Eos (auto) Absolute Basos (auto) Absolute Nucleated RBC Immature Gran % Immature Gran # Sodium 140 mEq/L mEq/L (134-144) Potassium 3.8 mEq/L mEq/L (3.5-5.2) Chloride 102 mEq/L mEq/L (97-110) Carbon Dioxide 21 mEq/l L mEq/l (22-31) Anion Gap 17 mEq/L H mEq/L (8-16) BUN 8 mg/dL mg/dL (7-23) Creatinine 0.7 mg/dL mg/dL (0.6-1.0) Estimated GFR > 60 Glucose 105 mg/dL H mg/dL (70-100) Calcium 10.0 mg/dL mg/dL (8.5-10.4) Beta HCG, Qual NEGATIVE Urine Color YELLOW Urine Appearance HAZY Urine pH 6.0 (5.0-7.5) Ur Specific [place] 1.019 (1.002-1.030) Urine Protein NEGATIVE (NEGATIVE) Urine Ketones 1+ H (NEGATIVE) Urine Blood 1+ H (NEGATIVE) Urine Nitrate NEGATIVE (NEGATIVE) Urine Bilirubin NEGATIVE (NEGATIVE) Urine Urobilinogen NEGATIVE EU EU (0.2-1.0) Ur Leukocyte Esterase NEGATIVE (NEGATIVE) Urine RBC 5-10 /hpf H /hpf (0-3) Urine WBC 1-3 /hpf /hpf (0-3) Ur Epithelial Cells 1+ /lpf /lpf (NONE-1+) Urine Mucus TRACE /lpf /lpf (NONE-1+) Urine Glucose NEGATIVE (NEGATIVE) 01/16/17 15:20 WBC 15.91 10^3/uL H 10^3/uL (3.80-9.50) RBC 4.42 10^6/uL 10^6/uL (4.18-5.33) Hgb 13.6 g/dL g/dL (12.6-16.3) Hct 40.3 % % (38.0-47.0) MCV 91.2 fL fL (81.5-99.8) MCH 30.8 pg pg (27.9-34.1) MCHC 33.7 g/dL g/dL (32.4-36.7) RDW 14.7 % % (11.5-15.2) Plt Count 387 10^3/uL 10^3/uL (150-400) MPV 8.7 fL fL (8.7-11.7) Neut % (Auto) 69.0 % % (39.3-74.2) Lymph % (Auto) 24.7 % % (15.0-45.0) Tift % (Auto) 5.0 % % (4.5-13.0) Eos % (Auto) 0.3 % L % (0.6-7.6) Baso % (Auto) 0.4 % % (0.3-1.7) Nucleat RBC Rel Count 0.0 % % (0.0-0.2) Absolute Neuts (auto) 11.00 10^3/uL H 10^3/uL (1.70-6.50) Absolute Lymphs (auto) 3.93 10^3/uL H 10^3/uL (1.00-3.00) Absolute Monos (auto) 0.79 10^3/uL 10^3/uL (0.30-0.80) Absolute Eos (auto) 0.04 10^3/uL 10^3/uL (0.03-0.40) Absolute Basos (auto) 0.06 10^3/uL 10^3/uL (0.02-0.10) Absolute Nucleated RBC 0.00 10^3/uL 10^3/uL (0-0.01) Immature Gran % 0.6 % % (0.0-1.1) Immature Gran # 0.09 10^3/uL 10^3/uL (0.00-0.10) Sodium Potassium Chloride Carbon Dioxide Anion Gap BUN Creatinine Estimated GFR Glucose Calcium Beta HCG, Qual Urine Color Urine Appearance Urine pH Ur Specific [place] Urine Protein Urine Ketones Urine Blood Urine Nitrate Urine Bilirubin Urine Urobilinogen Ur Leukocyte Esterase Urine RBC Urine WBC Ur Epithelial Cells Urine Mucus Urine Glucose Medications Given: Discontinued Medications Alprazolam (Xanax) 1 mg PO EDNOW ONE Stop: 01/16/17 18:01 Last Admin: 01/16/17 18:03 Dose: 1 mg Haloperidol Lactate (Haldol Injection) 2.5 mg IVP EDNOW ONE Stop: 01/16/17 16:57 Last Admin: 01/16/17 17:11 Dose: 2.5 mg Hydromorphone HCl (Dilaudid) 1 mg IVP EDNOW ONE Stop: 01/16/17 17:11 Last Admin: 01/16/17 19:25 Dose: Not Given Sodium Chloride (Ns) 1,000 mls @ 0 mls/hr IV ONCE ONE PRN Reason: Wide Open Stop: 01/16/17 15:43 Last Admin: 01/16/17 15:51 Dose: 1,000 mls Ketamine HCl (Ketamine) 20.7 mg 0.2 mg/kg (20.7 mg) IVP EDNOW ONE Stop: 01/16/17 15:39 Last Admin: 01/16/17 16:34 Dose: 20.7 mg Ketorolac Tromethamine (Toradol) 30 mg IVP EDNOW ONE Stop: 01/16/17 15:50 Last Admin: 01/16/17 15:51 Dose: 30 mg Ondansetron HCl (Zofran) 4 mg IVP EDNOW ONE Stop: 01/16/17 17:26 Last Admin: 01/16/17 17:27 Dose: 4 mg Oxycodone HCl (Oxycodone Ir) 5 mg PO EDNOW ONE Stop: 01/16/17 18:01 Last Admin: 01/16/17 18:03 Dose: 5 mg Departure - Departure Disposition: Home, Routine, Self-Care Clinical Impression: Pelvic pain Condition: Good Instructions: Pelvic Pain (ED) Additional Instructions: Seek immediate medical attention if you develop new or worsening symptoms, if you develop fevers, chills, inability to tolerate oral intake or any other symptoms that concerns you. Referrals: [facility] ([facility],. [Edm Groups for Call Sched] - 01/19/17 [facility],. [Clinic] - As per Instructions
[2017-01-16] MEDS ORDERED: KETOROLAC 30 MG/1 ML SDV IVP ONE (15:49)
[2017-01-16 15:50] LABS: ANION GAP 17 mEq/L (8-16); CARBON DIOXIDE 21 mEq/l (22-31); CHLORIDE 102 mEq/L (97-110); CREATININE 0.7 mg/dL (0.6-1.0); GLOMERULAR FILTRATION RATE > 60; GLUCOSE 105 mg/dL (70-100); POTASSIUM 3.8 mEq/L (3.5-5.2); SODIUM 140 mEq/L (134-144)
[2017-01-16 16:02] LABS: COLOR YELLOW; LEUKOCYTE ESTERASE,URINE NEGATIVE (NEGATIVE); NITRITE,URINE NEGATIVE (NEGATIVE)
[2017-01-16 16:04] LABS: MUCUS TRACE /lpf (NONE-1+)
[2017-01-16] MEDS ORDERED: HALOPERIDOL LACT 5 MG/ML INJ IVP ONE (16:56)
[2017-01-16] MEDS ORDERED: HYDROmorphONE/DILAUDID 1 MG/ML INJ IVP ONE (17:10)
[2017-01-16] MEDS ORDERED: ONDANSETRON 4 MG/2 ML VIAL IVP ONE (17:25)
[2017-01-16] MEDS ORDERED: ONDANSETRON 4 MG/2 ML VIAL ONE (17:26)
[2017-01-16] MEDS ORDERED: oxyCODONE IR 5 MG TAB ONE (17:59)
[2017-01-16] MEDS ORDERED: ALPRAZolam 1 MG TAB ONE (17:59)
[2017-01-16] MEDS ORDERED: ALPRAZolam 0.25 MG TAB PO ONE (18:00)
[2017-01-16] MEDS ORDERED: oxyCODONE IR 5 MG TAB PO ONE (18:00)
[2017-01-16 19:18] VITALS: RESP 18
[2017-01-16 19:25] VITALS: BP 131/89; PULSE 99; TEMP 97.9; O2SAT 95
== END 2017-01-16 19:25 | disposition home or self-care (01) ==
DX: G89.18 Other acute postprocedural pain (principal); F17.200 Nicotine dependence, unspecified, uncomplicated; R10.2 Pelvic and perineal pain; Z90.710 Acquired absence of both cervix and uterus
CPT/HCPCS: 96374; J1885; J2405

== ENCOUNTER 2017-06-19 18:06 | Emergency (ER) | payer MEDICAID ==
[2017-06-19] MEDS ORDERED: ONDANSETRON 4 MG/2 ML VIAL IVP ONE ×2 (18:20→18:43)
[2017-06-19] MEDS ORDERED: NS 1,000 ML IV ONE (18:20)
[2017-06-19 18:25] VITALS: BP 103/95
[2017-06-19 18:29] LABS: PLATELET COUNT 397 10^3/uL (150-400)
--- NOTE | 2017-06-19 18:31 | EDPHY ---
H & P Time Seen by Provider: 06/19/17 18:09 HPI/ROS: HPI Left flank pain radiating to left lower abdomen. 31-year-old female by ambulance. She is on are no narcotic list. Complains of right flank with radiation to the right lower abdomen, onset this afternoon. Given 200 mcg of IV fentanyl in route by EMS. They were unaware of her no narcotic status. She states she has a history of kidney stones. No fever. No gross hematuria. Nausea but no vomiting. ROS: Constitutional: No fever, no chills. No weakness. Eyes: No discharge. No changes in vision. ENT: No sore throat. No nasal congestion or rhinorrhea. Respiratory: No cough. No shortness of breath. Cardiac: No chest pain, no palpitations. Gastrointestinal: As above, no vomiting, no diarrhea. Genitourinary: No hematuria. No dysuria or increased frequency with urination. Musculoskeletal: As above. No neck pain. No myalgias or arthralgias. Skin: No rashes. Neurological: No headache. No focal weakness or altered sensation. Past medical history: Kidney stones, bladder mesh, appendectomy, left-sided oophorectomy, hysterectomy, fibromyalgia, anxiety, chronic pain, narcotic caution. Social history: Smoker. No alcohol. Here by herself. Physical Exam: General Appearance: Alert, emotional, appears uncomfortable. This patient is responding to questions appropriately and in full sentences. This patient appears well-hydrated and well-nourished. Eyes: Pupils equal and round no pallor or injection. No lid edema, erythema or injection. Respiratory: There are no retractions, lungs are clear to auscultation with good air movement bilaterally. Cardiovascular: Regular rate and rhythm. No murmur. Gastrointestinal: Abdomen is soft with vague right lower quadrant tenderness on palpation, no masses, bowel sounds normal. No focal tenderness at McBurney' s point. No Amaro sign. Neurological: Motor sensory function is grossly intact. Cranial nerves are normal. Gait is normal. Skin: Warm and dry, no rashes. Musculoskeletal: Vague and right-sided CVA tenderness on palpation. No right- sided CVA tenderness on palpation. Extremities are symmetrical. All joints range without pain or impingement. Psychiatric: No agitation. No depression. Database: EKG: Imaging: CT of abdomen and pelvis without contrast: She has a chronic kidney stone lower pole of right kidney. Gallbladder out, appendix out, left ovary out, uterus out. No free fluid. CT scan otherwise unremarkable. Results were discussed with staff radiologist Dr. Louis Aragon. Procedures: Emergency department course: IV was placed per EMS. Vital signs reviewed. Mildly tachycardic. Vital signs otherwise normal. Patient afebrile. She consents for CT imaging to evaluate for ureterolithiasis. 6:45 p.m., I discussed with the patient the fact that she is on our no narcotic list. I did discuss her apparent allergy to Ketoralac/Toradol. She stated that it was not an allergy to Ketoralac but an allergy to ketamine. He states that ketamine made her feel very spacey. I asked her if she had any problem taking ibuprofen and she denied. She stated that she wanted to try Toradol for pain. She was given 30 mg of IV Toradol and 4 mg of IV Zofran. She has no history of renal dysfunction or peptic ulcer disease. 7:00 p.m., patient re-evaluated. She is sitting upright at this time. She appears comfortable. I discussed the results of her CT scan and blood work. She does not want to provide us with a urine sample and she is declining a pelvic ultrasound to further evaluate her right ovary is a source of her pain. She is asking for discharge. She states that she will see her physicians at [facility] [place] who prescribes her pain medication. She is upset that we will not give her narcotic pain medication. I apologized to her for this but I explained that this was the hospital policy regarding her care at this time. I did explain the Toradol was a very good pain medication and would work very well for her pain but she declined this as well. She understands the risks of being discharged against medical advice in my professional opinion. The patient competently engages in shared decision making. They demonstrate capacitance to make decisions. Follow-up and return to emergency department precautions discussed with her. All of her questions were answered. She was discharged in good condition. Differential Diagnosis: The differential diagnosis on this patient includes but is not limited to kidney stones, exacerbation of chronic pain. Ovarian torsion, ectopic , appendicitis, diverticulitis unlikely. This represents a partial list of diagnoses considered. These considerations are based on history, physical exam , past history, reassessment and diagnostic testing. Smoking Status: Heavy smoker Constitutional: Initial Vital Signs Temperature (C) 36.9 C 06/19/17 18:22 Heart Rate 108 H 06/19/17 18:22 Respiratory Rate 18 06/19/17 18:22 Blood Pressure 103/95 H 06/19/17 18:22 O2 Sat (%) 96 06/19/17 18:22 O2 Delivery Mode Room Air Allergies/Adverse Reactions: codeine Allergy (Intermediate, Verified 01/16/17 14:30) Itching diphenhydramine [From Benadryl] Allergy (Verified 06/19/17 18:18) ketorolac [From Toradol] Allergy (Verified 06/19/17 18:18) Home Medications: Medication Instructions Recorded ALPRAZolam [Xanax 1 MG (*)] 1 mg PO BID 10/05/16 DULoxetine [Cymbalta 60 MG (*)] 60 mg PO DAILY10 10/05/16 oxyCODONE IR [Oxycodone Ir (*)] 5 mg PO TID #12 tab 10/11/16 Seroquel 06/19/17 Medical Decision Making - Diagnostics Imaging Results: Imaging Impressions Abdomen/Pelvis CT 06/19/17 18:20 Impression: 1. There is a nonobstructive lower pole right nephrolith. 2. Status post cholecystectomy, appendectomy, hysterectomy, and a left oophorectomy. 3. Mild hepatomegaly, unchanged from 10/05/2016 with mild underlying steatosis. Attention: This CT examination is specifically designed to evaluate patients who are clinically suspected of having acute obstructive uropathy. This examination does not use radiographic contrast, and as such, provides only a limited evaluation of the abdomen, pelvis, and retroperitoneum. If there is further clinical suspicion for pathological conditions other than obstructive uropathy, a complete CT evaluation of the abdomen and pelvis utilizing intravenous, oral, and rectal contrast should be considered. Findings were discussed with Dwayne Fisher MD at 18:52, on 06/19/2017. - Data Points Laboratory Results: Laboratory Results 06/19/17 18:15 06/19/17 18:15 06/19/17 06/19/17 18:15 18:15 WBC 14.46 10^3/uL H 10^3/uL (3.80-9.50) RBC 4.25 10^6/uL 10^6/uL (4.18-5.33) Hgb 12.7 g/dL g/dL (12.6-16.3) Hct 38.2 % % (38.0-47.0) MCV 89.9 fL fL (81.5-99.8) MCH 29.9 pg pg (27.9-34.1) MCHC 33.2 g/dL g/dL (32.4-36.7) RDW 13.8 % % (11.5-15.2) Plt Count 397 10^3/uL 10^3/uL (150-400) MPV 9.4 fL fL (8.7-11.7) Neut % (Auto) 71.8 % % (39.3-74.2) Lymph % (Auto) 21.0 % % (15.0-45.0) [place] % (Auto) 5.3 % % (4.5-13.0) Eos % (Auto) 1.2 % % (0.6-7.6) Baso % (Auto) 0.3 % % (0.3-1.7) Nucleat RBC Rel Count 0.0 % % (0.0-0.2) Absolute Neuts (auto) 10.40 10^3/uL H 10^3/uL (1.70-6.50) Absolute Lymphs (auto) 3.03 10^3/uL H 10^3/uL (1.00-3.00) Absolute Monos (auto) 0.76 10^3/uL 10^3/uL (0.30-0.80) Absolute Eos (auto) 0.17 10^3/uL 10^3/uL (0.03-0.40) Absolute Basos (auto) 0.04 10^3/uL 10^3/uL (0.02-0.10) Absolute Nucleated RBC 0.00 10^3/uL 10^3/uL (0-0.01) Immature Gran % 0.4 % % (0.0-1.1) Immature Gran # 0.06 10^3/uL 10^3/uL (0.00-0.10) Sodium 140 mEq/L mEq/L (135-145) Potassium 4.2 mEq/L mEq/L (3.5-5.2) Chloride 101 mEq/L mEq/L (97-110) Carbon Dioxide 24 mEq/l mEq/l (22-31) Anion Gap 15 mEq/L mEq/L (8-16) BUN 7 mg/dL mg/dL (7-23) Creatinine 0.7 mg/dL mg/dL (0.6-1.0) Estimated GFR > 60 Glucose 105 mg/dL H mg/dL (70-100) Calcium 9.5 mg/dL mg/dL (8.5-10.4) Medications Given: Discontinued Medications Sodium Chloride (Ns) 1,000 mls @ 0 mls/hr IV EDNOW ONE; Wide Open PRN Reason: Protocol Stop: 06/19/17 18:21 Last Admin: 06/19/17 18:51 Dose: Not Given Ondansetron HCl (Zofran) 4 mg IVP EDNOW ONE Stop: 06/19/17 18:21 Last Admin: 06/19/17 18:45 Dose: 4 mg Departure - Departure Disposition: Against Medical Advice Clinical Impression: Right flank pain Condition: Good Instructions: Flank Pain (ED) Additional Instructions: Read and follow provided instructions. Follow-up with your primary care physician as discussed for re-evaluation on Thursday. Ibuprofen dosin mg every 6 hours with meals for the next 3 days only. Take only as needed for pain. Return to the emergency department immediately for worsening pain, vomiting, fever or other serious concerns. Referrals: Patient,NotPresent [Primary Care Provider] - As per Instructions
[2017-06-19] MEDS ORDERED: KETOROLAC 30 MG/1 ML SDV IVP ONE (18:43)
== END 2017-06-19 19:26 | disposition left against medical advice (07) ==
LOC: EDUNIT#
DX: R10.31 Right lower quadrant pain (principal); F17.200 Nicotine dependence, unspecified, uncomplicated; Z90.49 Acquired absence of other specified parts of digestive tract; Z90.710 Acquired absence of both cervix and uterus
CPT/HCPCS: 96374; J2405